=== PATIENT | female | born 1965 | race Caucasian/White ===

== ENCOUNTER → 2017-10-10 | Outpatient (CLI) | payer BC ==
--- NOTE | 2017-10-16 13:08 | MM ---
Reason for exam: screening (asymptomatic). Last mammogram was performed 1 year and 1 month ago. History: Patient had first child at age 35. Benign core biopsy of the right breast, 2000. Physical Findings: A clinical breast exam by your physician is recommended on an annual basis and results should be correlated with mammographic findings. MG Screening Mammo w CAD Bilateral CC and MLO view(s) were taken. Prior study comparison: September 13, 2016, bilateral MG screening mammo w CAD. September 07, 2015, bilateral MG screening mammo w CAD. The breast tissue is heterogeneously dense. This may lower the sensitivity of mammography. Previous mammotome biopsy in the right breast x 3. Large oval mass 10 o'clock right breast is new. Nodular asymmetry medial left breast is new. ASSESSMENT: Incomplete: need additional imaging evaluation, BI-RAD 0 RECOMMENDATION: Ultrasound of both breasts. (right lateral, left medial) [facility] will attempt to contact patient to return for ultrasound.
== END | disposition home or self-care (01) ==
LOC: RADMAMWWP 15:20
PROVIDERS: ATTEND Family Medicine
DX: Z12.31 Encounter for screening mammogram for malignant neoplasm of breast (principal)

== ENCOUNTER → 2017-10-22 | Outpatient (CLI) | payer BC ==
--- NOTE | 2017-10-22 08:34 | USB ---
Reason for exam: follow-up at short interval from prior study. History: Patient had first child at age 35. Benign core biopsy of the right breast, 2000. US Breast Workup Limited TATI Right breast ultrasound demonstrates a 0.7 x 0.6 x 0.6cm oval, cystic lesion at 10 o'clock, and a 3.0 x 1.1 x 3.0cm oval, cystic lesion at 10 o'clock. Simple cysts, with mammographic correlation. Left breast ultrasound demonstrates a 0.5 x 0.5 x 0.6cm oval, cystic lesion at 9 o'clock, with mammographic correlation. Overall fibrocystic changes. These results were verbally communicated with the patient and result sheet given to the patient on 10/22/17. ASSESSMENT: Benign, BI-RAD 2 RECOMMENDATION: Routine screening mammogram of both breasts in 1 year.
== END | disposition home or self-care (01) ==
LOC: RADUSWWP 06:54
PROVIDERS: ATTEND Family Medicine
DX: R92.8 Other abnormal and inconclusive findings on diagnostic imaging of breast (principal)

== ENCOUNTER → 2018-05-27 | Outpatient (CLI) | payer BC ==
--- NOTE | 2018-05-27 17:49 | CONS ---
CONSULTATION This is a consultation for sleep apnea. 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 She had a sleep apnea consultation back in 2012 and she decided not to undergo the treatment. Over the past 5 years, she has gained around 20- 25 pounds. Her snoring has gotten worse. She is having excessive fatigue and sleepiness during the day. She goes to bed around 10:00 p.m., wakes up at 6:30 in the morning. She wakes up tired and sleepy during the day and she is very much worried about her sleep quality. Eunice Score is at 7. She does not fall asleep at work. She does not fall asleep while driving. No sleep paralysis, hallucinations or cataplexy. PAST MEDICAL HISTORY: Depression on Prozac. SOCIAL HISTORY: Nonsmoker. No history of alcoholism. No history of IV drugs. SURGICAL HISTORY: Two C-sections and laparoscopic D and C. ALLERGIES: Are to POLLENS and CHERRIES. MEDICATION: Includes Prozac. FAMILY HISTORY: Positive for sleep apnea and her brother has obstructive sleep apnea. REVIEW OF SYSTEMS: A 12-point review of system was done and the positive findings are mentioned above in history of present illness. No reported history of grinding of the teeth. No sleepwalking, no sleep talking. No restlessness, lower extremities. No sweating. No heartburn at nighttime. No other complaints otherwise. BP is 148/73, pulse 80, respirations 16, temperature 97.5, saturation 96% on room air. Weight is 269. Height is 5 feet 7 inches. Neck size 16 inches. BMI 42.1. GENERAL APPEARANCE: Calm, comfortable. Head is atraumatic, normocephalic. Neck is short, supple. Mallampati class IV. There is no goiter or neck masses. LUNGS: Clear to auscultation. HEART: Sounds are regular rate and rhythm. Normal S1, S2. No S3. No murmurs. ABDOMEN: Soft, nontender. No organomegaly. EXTREMITIES: No edema. No cyanosis or clubbing. SKIN: Negative for any wounds or ulceration. Neurologically, the patient is OA x3. IMPRESSION: 1. Excessive daytime sleepiness, likely in a patient with obstructive sleep apnea. Will need further investigation. Eunice Score is at 7. 2. Loud snoring. 3. Obesity with a BMI of 42.1. 4. Depression. PLAN: 1. Encourage weight loss. 2. Proceed with a sleep study to look for any significant sleep breathing disorder and treat accordingly. MMODL / IJN: [id number] /
== END | disposition home or self-care (01) ==
LOC: SLEEP 16:24
PROVIDERS: ATTEND Internal Medicine Critical Care Medicine
DX: R06.83 Snoring (principal); G47.10 Hypersomnia, unspecified; R53.83 Other fatigue; F32.9 Major depressive disorder, single episode, unspecified; J30.1 Allergic rhinitis due to pollen; E66.9 Obesity, unspecified; Z91.018 Allergy to other foods; Z68.41 Body mass index [BMI] 40.0-44.9, adult; Z79.899 Other long term (current) drug therapy; Z98.890 Other specified postprocedural states
CPT/HCPCS: 99211

== ENCOUNTER → 2018-10-14 | Outpatient (CLI) | payer BC ==
--- NOTE | 2018-10-15 14:44 | MM ---
Reason for exam: screening (asymptomatic). Last mammogram was performed 1 year ago. History: Patient had first child at age 35. Benign core biopsy of the right breast, 2000. Physical Findings: A clinical breast exam by your physician is recommended on an annual basis and results should be correlated with mammographic findings. MG 3D Screening Mammo W/Cad Bilateral CC and MLO view(s) were taken. Prior study comparison: October 11, 2017, bilateral MG screening mammo w CAD. September 13, 2016, bilateral MG screening mammo w CAD. The breast tissue is heterogeneously dense. This may lower the sensitivity of mammography. There is chronic nodularity bilaterally. No significant changes when compared with prior studies. ASSESSMENT: Benign, BI-RAD 2 RECOMMENDATION: Routine screening mammogram of both breasts in 1 year.
== END | disposition home or self-care (01) ==
LOC: RADMAMWWP 12:54
PROVIDERS: ATTEND Family Medicine
DX: Z12.31 Encounter for screening mammogram for malignant neoplasm of breast (principal)
CPT/HCPCS: 77063; 77067

== ENCOUNTER → 2019-11-09 | Outpatient (CLI) | payer BC ==
--- NOTE | 2019-11-09 14:52 | MM ---
Reason for exam: screening (asymptomatic). Last mammogram was performed 1 year and 1 month ago. History: Patient had first child at age 35. Benign core biopsy of the right breast, 2000. Physical Findings: A clinical breast exam by your physician is recommended on an annual basis and results should be correlated with mammographic findings. MG 3D Screening Mammo W/Cad Bilateral CC and MLO view(s) were taken. Prior study comparison: October 14, 2018, bilateral MG 3d screening mammo w/cad. October 11, 2017, bilateral MG screening mammo w CAD. The breast tissue is heterogeneously dense. This may lower the sensitivity of mammography. Finding #1: There is a 6 mm circumscribed oval mass located 7-8 cm from the nipple in the middle, central position of the right breast on CC 19/77 and MLO 28/80. Finding #2: There are typically benign round calcifications in both breasts. Previous mammotome biopsy in the right breast x 3. ASSESSMENT: Incomplete: need additional imaging evaluation, BI-RAD 0 RECOMMENDATION: Special view mammogram and ultrasound of the right breast. [facility] will attempt to contact patient to return for supplemental views and ultrasound.
== END ==
LOC: RADMAMWWP 09:57
PROVIDERS: ATTEND Physician Assistant Medical
DX: Z12.31 Encounter for screening mammogram for malignant neoplasm of breast (principal)
CPT/HCPCS: 77063; 77067

== ENCOUNTER → 2019-11-10 | Outpatient (CLI) | payer BC | END | disposition home or self-care (01) | LOC: LABWHC1 10:55 | PROVIDERS: ATTEND Physician Assistant Medical | DX: R53.83 Other fatigue (principal) | CPT/HCPCS: 36415; 93005 ==

== ENCOUNTER → 2019-11-19 | Outpatient (CLI) | payer BC ==
--- NOTE | 2019-11-19 11:55 | MM ---
Reason for exam: additional evaluation requested from abnormal screening. Last mammogram was performed less than 1 month ago. History: Patient had first child at age 35. Benign core biopsy of the right breast, 2000. Physical Findings: Nurse did not find any significant physical abnormalities on exam. MG 3D Work Up W/Cad RT Spot compression CC, spot compression MLO, and ML view(s) were taken of the right breast. Prior study comparison: November 09, 2019, bilateral MG 3d screening mammo w/cad. October 14, 2018, bilateral MG 3d screening mammo w/cad. The breast tissue is heterogeneously dense. This may lower the sensitivity of mammography. There is a 4mm persistent low density lower outer quadrant mass 8.5cm from nipple. Ultrasound will be performed. Multiple right biopsy markers noted. These results were verbally communicated with the patient and result sheet given to the patient on 11/19/19. ASSESSMENT: Incomplete: need additional imaging evaluation, BI-RAD 0 RECOMMENDATION: Ultrasound of the right breast.
--- NOTE | 2019-11-19 11:56 | USB ---
Reason for exam: additional evaluation requested from abnormal screening. History: Patient had first child at age 35. Benign core biopsy of the right breast, 2000. US Breast Workup Limited RT Right limited breast ultrasound including focal area of concern, retroareolar and axilla demonstrates a 4 x 3 x 3mm oval, cystic lesion at 8 o'clock, correlates with mammogram, benign. These results were verbally communicated with the patient and result sheet given to the patient on 11/19/19. ASSESSMENT: Benign, BI-RAD 2 RECOMMENDATION: Return to routine screening mammogram schedule for both breasts.
== END | disposition home or self-care (01) ==
LOC: RADMAMWWP 10:14
PROVIDERS: ATTEND Family Medicine
DX: R92.8 Other abnormal and inconclusive findings on diagnostic imaging of breast (principal)
CPT/HCPCS: 77061; 77065

== ENCOUNTER → 2019-11-23 | Outpatient (CLI) | payer BC ==
--- NOTE | 2019-11-23 11:13 | US ---
EXAMINATION TYPE: US abdomen complete DATE OF EXAM: 11/23/2019 COMPARISON: US 11/28/2010 CLINICAL HISTORY: R94.5 Abnormal liver fxn test. Difficult and limited exam due to patient body habit us and overlying bowel gas EXAM MEASUREMENTS: Liver Length: 15.2 cm Gallbladder Wall: Surgically absent CBD: 0.6 cm Spleen: 11.0 cm Right Kidney: 10.9 x 5.0 x 4.2 cm Left Kidney: 11.1 x 4.8 x 4.8 cm Pancreas: Obscured by bowel gas Liver: Attenuating, echogenic, heterogeneous echotexture. Limited evaluation Gallbladder: Surgically absent Evidence for sonographic Aburto's sign: No CBD: Limited visualization, wnl as visualized Spleen: wnl Right Kidney: No hydronephrosis or masses seen Left Kidney: No hydronephrosis. Echogenic foci measuring 0.7 cm Upper IVC: Limited due to overlying bowel gas Abd Aorta: Limited due to overlying bowel gas Visualized liver is heterogeneously hyperechoic. Evaluation for focal masses is suboptimal due to the heterogeneity. Cannot exclude nonobstructing left renal calculus. Gallbladder noted surgically absen t. Suboptimal evaluation of pancreas on images saved along with aorta and IVC. IMPRESSION: Suboptimal study, more prominent heterogeneous hyperechoic appearance of liver could refl ect increasing diffuse fatty infiltration and/or product of underlying hepatocellular disease. Imagin g guided random sampling for tissue analysis can be performed if desired.
== END | disposition home or self-care (01) ==
LOC: RADUSMAIN 09:52
PROVIDERS: ATTEND Family Medicine
DX: R93.2 Abnormal findings on diagnostic imaging of liver and biliary tract (principal); R94.5 Abnormal results of liver function studies
CPT/HCPCS: 76700

== ENCOUNTER 2020-04-11 09:23 | Day surgery (SDC) | payer BC ==
[2020-04-07 15:44] VITALS: BMI 41.5
--- NOTE | 2020-04-10 11:46 | HP ---
HISTORY AND PHYSICAL CHIEF COMPLAINT: Right shoulder pain and stiffness. 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 She denies any traumatic event. She has had extensive treatment with therapy, home exercise, and injections with persistence of her stiffness. PAST MEDICAL HISTORY: Otherwise negative. PAST SURGICAL HISTORY: Significant for bilateral tubal ligation, cholecystectomy, and section. CURRENT MEDICATIONS: Prozac, Singulair, Symbicort, and Zyrtec. She denies drug allergies. FAMILY HISTORY: Seen for heart disease and hypertension. SOCIAL HISTORY: Negative for current tobacco or alcohol use. REVIEW OF SYSTEMS: Sixteen point review of systems otherwise reviewed and is noncontributory. PHYSICAL EXAMINATION: On examination, the patient is approximately 5 feet 7 inches, 260 pounds of endomorphic habitus. HEENT exam is nonfocal. Neck is supple. On examination of her right shoulder, she is tender about the anterior glenohumeral joint. She has moderate subacromial crepitus. Active range of motion forward elevation 150 degrees external rotation with arm at side 45 degrees, internal rotation to L4. Motor strength is 5/5 for abduction and external rotation. Impingement test is positive. Her distal neurovascular exam appears intact in the right upper extremity. IMPRESSION: Right shoulder adhesive capsulitis-symptomatic. RECOMMENDATIONS: I talked to the patient at length regarding her condition and treatment options. She has tried extensive conservative measures with persistence of pain and stiffness. After thorough discussion, she opts to proceed with manipulation under anesthesia. We will start her on a Medrol dose pack after the procedure as well as resumption of her exercise program. Risks and benefits were discussed at length in layman's terms. MMODL / IJN: [id number] /
[~2020-04-11 09:23] MED LIST: LACTATED RINGERS 1,000 ML IV SCH; ONDANSETRON 4 MG/2 ML VIAL IVP ONE; ceFAZolin 3 GM in SODIUM CHLORIDE 0.9% 100 ML IVPB ONE; fentaNYL (PF) 50 MCG/ML 2 ML AMP IV PRN
[2020-04-11] MEDS ORDERED: ONDANSETRON 4 MG/2 ML VIAL ONE (09:56)
[2020-04-11] MEDS ORDERED: LIDOCAINE 1% (10MG/ML) FOR IV START INTRADERMA ONE (10:00)
[2020-04-11 10:14] VITALS: TEMP 97.8
[2020-04-11 10:16] LABS: Glucose,Whole Blood 101 mg/dL (75-99)
[2020-04-11] MEDS ORDERED: PROPOFOL 10 MG/ML 20 ML VIAL IV ONE (10:21)
[2020-04-11] MEDS ORDERED: LIDOCAINE 1% INJ 10MG/ML (20 ML MDV) ONE (10:21)
--- NOTE | 2020-04-11 10:34 | P.OP ---
Date of Procedure: 04/11/20 Preoperative Diagnosis: Right shoulder adhesive capsulitis Postoperative Diagnosis: Same Procedure(s) Performed: Manipulation under anesthesia right shoulder Anesthesia: MAC Surgeon: Jay Walls Estimated Blood Loss (ml): 0 Pathology: none sent Condition: stable Disposition: PACU Indications for Procedure: The patient's a 54-year-old female who presents with persistent stiffness and pain in her right shoulder secondary to adhesive capsulitis despite conservative measures. A discussion of the risks and benefits of manipulation under anesthesia was made with patient. She opted to proceed. Risks of this procedure to include fracture, tendon rupture, possible recurrence of stiffness and need for subsequent procedures was discussed. Informed consent was obtained. Operative Findings: As below Description of Procedure: Patient was brought to the recovery room and after induction of IV sedation the right shoulder was gently manipulated. First with the arm at side is able to obtain 70 of external rotation. Moderate adhesions were encountered. I was then able to obtain full forward elevation. Again moderate adhesions were encountered. She was then monitored until fully awake. No complications were incurred. There was no blood loss.
[2020-04-11] MEDS: HYDROmorphone 0.5 MG/0.5 ML SYRINGE IVP PRN ×4 (10:35→11:02)
[2020-04-11] MEDS ORDERED: KETOROLAC 30 MG/ML 1 ML VIAL IVP ONE (10:38)
[2020-04-11 10:52] VITALS: RESP 16
[2020-04-11] MEDS ORDERED: HYDROcodone/APAP 5-325MG 1 EACH TAB ONE (11:28)
[2020-04-11] MEDS ORDERED: HYDROcodone/APAP 5-325MG 1 EACH TAB PO ONE (11:32)
[2020-04-11 11:49] VITALS: BP 142/90; PULSE 81
== END 2020-04-11 12:15 | disposition home or self-care (01) ==
LOC: OR 09:23
PROVIDERS: ATTEND Orthopaedic Surgery
DX: M75.01 Adhesive capsulitis of right shoulder (principal); J45.909 Unspecified asthma, uncomplicated; Z90.49 Acquired absence of other specified parts of digestive tract; Z98.51 Tubal ligation status; Z98.890 Other specified postprocedural states; Z79.51 Long term (current) use of inhaled steroids; Z82.49 Family history of ischemic heart disease and other diseases of the circulatory system; Z79.899 Other long term (current) drug therapy
CPT/HCPCS: 23700; 81025; J2405; J2001; J1885; J2704; J1170

== ENCOUNTER → 2020-06-15 | Outpatient (CLI) | payer BC ==
--- NOTE | 2020-06-15 10:34 | US ---
EXAMINATION TYPE: US abdomen complete DATE OF EXAM: 06/15/2020 COMPARISON: 11/23/2019 CLINICAL HISTORY: 54-year-old female R94.5 ABN RESULTS OF LIVER FUNCTIONS. TECHNIQUE: Multiple sonographic images of the abdomen are obtained. FINDINGS: EXAM MEASUREMENTS: Liver Length: 16.7 cm Gallbladder: Surgically absent CBD: 0.4 cm Spleen: 11.0 cm Right Kidney: 11.4 x 4.3 x 5.6 cm Left Kidney: 11.4 x 5.4 x 5.1 cm Pancreas: Suboptimal visualization of the pancreatic tail due to shadowing from bowel gas. Visualize d portions show no gross abnormality. Liver: Echogenic and attenuating. This secondary limits assessment for focal lesions. Gallbladder: Surgically absent CBD: wnl Spleen: wnl Right Kidney: No hydronephrosis; hyperechoic area lower pole 0.5 x 0.3 x 0.4 cm Left Kidney: No hydronephrosis; hyperechoic area mid 0.6 x 0.5 x 0.5 cm Upper IVC: Limited due to attenuation from the liver. Abd Aorta: wnl IMPRESSION: 1. Status post cholecystectomy. No biliary ductal dilatation. 2. Severe hepatic steatosis. Correlate with LFTs, lipid profile, and patient risk factors. 3. Nonobstructive bilateral nephrolithiasis measuring up to 6 mm.
== END | disposition home or self-care (01) ==
LOC: RADUSWWP 08:55
PROVIDERS: ATTEND Family Medicine
DX: K76.0 Fatty (change of) liver, not elsewhere classified (principal); N20.0 Calculus of kidney; Z90.49 Acquired absence of other specified parts of digestive tract
CPT/HCPCS: 76700

== ENCOUNTER → 2020-09-04 | Outpatient (CLI) | payer BC ==
[2020-09-04 08:09] LABS: HGB 13.7 gm/dL (11.4-16.0); MCH 30.2 pg (25.0-35.0); MCHC 33.5 g/dL (31.0-37.0); MCV 90.2 fL (80.0-100.0); Mean Platelet Volume 6.7; Platelet Count 242 k/uL (150-450); RBC 4.55 m/uL (3.80-5.40); RDW 13.3 % (11.5-15.5); WBC 5.9 k/uL (3.8-10.6)
[2020-09-04 11:16] LABS: INR 1.01 (0.90-1.11); Prothrombin Time 10.9 sec (9.9-11.9)
[2020-09-04 11:39] LABS: % Iron Saturation 14.84 (12.00-45.00); Albumin 4.1 g/dL (3.80-4.90); Albumin/Globulin Ratio 1.86 (1.60-3.17); Bilirubin, Conjugated 0.3 mg/dL (0.20-0.40); Bilirubin,Unconjugated 0.8 mg/dL; Globulin 2.2 g/dL (1.6-3.3); Total Bilirubin 1.1 mg/dL (0.3-1.2); Total Protein 6.3 g/dL (6.2-8.2)
[2020-09-04 11:46] LABS: Ferritin 85.7 ng/mL (10.0-291.0)
[2020-09-04 13:45] LABS: Hepatitis A Antibody IgM Non-Reactive (Non-Reactive); Hepatitis B Core IgM Non-Reactive (Non-Reactive); Hepatitis B Surface Antigen Non-Reactive (Non-Reactive); Hepatitis C IgG Antibody Non-Reactive (Non-Reactive)
[2020-09-05 12:05] LABS: Ceruloplasmin 24.7 mg/dL (20.0-60.0)
== END | disposition home or self-care (01) ==
LOC: LABWHC1 07:41
PROVIDERS: ATTEND Physician Assistant
DX: R74.01 Elevation of levels of liver transaminase levels (principal)
CPT/HCPCS: 36415; 80074; 80076; 82103; 82390; 82728; 83516; 83540; 83550; 85027; 85610; 86038

== ENCOUNTER → 2021-02-15 | Outpatient (CLI) | payer BC ==
--- NOTE | 2021-02-16 09:39 | MM ---
Reason for exam: screening (asymptomatic). Last mammogram was performed 1 year and 3 months ago. History: Patient is postmenopausal and had first child at age 35. Benign core biopsy of the right breast, 2000. Taking estrogen for 4 months. Physical Findings: A clinical breast exam by your physician is recommended on an annual basis and results should be correlated with mammographic findings. MG 3D Screening Mammo W/Cad Bilateral CC and MLO view(s) were taken. Prior study comparison: November 19, 2019, right breast MG 3d work up w/cad RT. November 09, 2019, bilateral MG 3d screening mammo w/cad. The breast tissue is heterogeneously dense. This may lower the sensitivity of mammography. Benign appearing bilateral calcifications. Previous mammotome biopsy in the right breast. ASSESSMENT: Incomplete: need additional imaging evaluation, BI-RAD 0 RECOMMENDATION: Special view mammogram of the left breast. If lesion persists on supplemental views, image directed ultrasound is recommended. [facility] will attempt to contact patient to return for supplemental views and ultrasound if indicated.
== END | disposition home or self-care (01) ==
LOC: RADMAMWWP 11:18
PROVIDERS: ATTEND Family Medicine
DX: Z12.31 Encounter for screening mammogram for malignant neoplasm of breast (principal); Z78.0 Asymptomatic menopausal state
CPT/HCPCS: 77063; 77067

== ENCOUNTER → 2021-02-20 | Outpatient (CLI) | payer BC ==
--- NOTE | 2021-02-20 10:48 | MM ---
Reason for exam: additional evaluation requested from abnormal screening. Last mammogram was performed less than 1 month ago. History: Patient is postmenopausal and had first child at age 35. Benign core biopsy of the right breast, 2000. Taking estrogen for 4 months. Physical Findings: Nurse did not find any significant physical abnormalities on exam. MG 3D Work Up W/Cad LT Spot compression CC and LM view(s) were taken of the left breast. Prior study comparison: February 15, 2021, bilateral MG 3d screening mammo w/cad. November 19, 2019, right breast MG 3d work up w/cad RT. The breast tissue is heterogeneously dense. This may lower the sensitivity of mammography. There is no discrete abnormality including area of concern. These results were verbally communicated with the patient and result sheet given to the patient on 02/20/21. ASSESSMENT: Probably benign, BI-RAD 3 RECOMMENDATION: Follow-up diagnostic mammogram of the left breast in 6 months.
== END | disposition home or self-care (01) ==
LOC: RADMAMWWP 09:01
PROVIDERS: ATTEND Family Medicine
DX: R92.2 Inconclusive mammogram (principal); Z78.0 Asymptomatic menopausal state
CPT/HCPCS: 77061; 77065

== ENCOUNTER → 2021-08-24 | Outpatient (CLI) | payer BC ==
--- NOTE | 2021-08-27 09:11 | MM ---
Reason for exam: follow-up at short interval from prior study. Last mammogram was performed 6 months ago. History: Patient is postmenopausal and had first child at age 35. Benign core biopsy of the right breast, 2000. Taking estrogen for 4 months. Physical Findings: Nurse did not find any significant physical abnormalities on exam. MG 3D Diag Mammo W/Cad LT CC and MLO view(s) were taken of the left breast. Prior study comparison: February 20, 2021, left breast MG 3d work up w/cad LT. February 15, 2021, bilateral MG 3d screening mammo w/cad. The breast tissue is heterogeneously dense. This may lower the sensitivity of mammography. There is no discrete abnormality. No significant new findings when compared with previous films. These results were verbally communicated with the patient and result sheet given to the patient on 08/24/21. ASSESSMENT: Probably benign, BI-RAD 3 RECOMMENDATION: Follow-up diagnostic mammogram of both breasts in 6 months.
== END | disposition home or self-care (01) ==
LOC: RADMAMWWP 15:01
PROVIDERS: ATTEND Family Medicine
DX: R92.8 Other abnormal and inconclusive findings on diagnostic imaging of breast (principal)
CPT/HCPCS: 77061; 77065

== ENCOUNTER → 2022-02-22 | Outpatient (CLI) | payer BC ==
--- NOTE | 2022-02-22 13:45 | MM ---
Reason for exam: additional evaluation requested from prior study. Last mammogram was performed 6 months ago. History: Patient is postmenopausal and had first child at age 35. Benign core biopsy of the right breast, 2000. Taking estrogen beginning at age 54. Physical Findings: A clinical breast exam by your physician is recommended on an annual basis and results should be correlated with mammographic findings. MG 3D Diag Mammo W/Cad TATI Bilateral CC and MLO view(s) were taken. Prior study comparison: August 24, 2021, left breast MG 3d diag mammo w/cad LT. February 20, 2021, left breast MG 3d work up w/cad LT. The breast tissue is heterogeneously dense. This may lower the sensitivity of mammography. Stable benign calcifications. There is no discrete abnormality. No significant new findings when compared with previous films. Results were given to the patient verbally at the time of the exam. ASSESSMENT: Benign, BI-RAD 2 RECOMMENDATION: Routine screening mammogram of both breasts in 1 year.
== END | disposition home or self-care (01) ==
LOC: RADMAMWWP 12:51
PROVIDERS: ATTEND Family Medicine
DX: R92.8 Other abnormal and inconclusive findings on diagnostic imaging of breast (principal)
CPT/HCPCS: 77062; 77066

== ENCOUNTER → 2022-03-15 | Outpatient (CLI) | payer BC ==
--- NOTE | 2022-03-16 01:22 | MR ---
EXAMINATION TYPE: MR knee LT wo con DATE OF EXAM: 03/15/2022 COMPARISON: None HISTORY: Left knee pain x 8 weeks, no trauma. Multiplanar multiecho imaging of the left knee without contrast. There is knee joint effusion. There is subcutaneous edema around the knee. There is edema anterior to the patella. The anterior and posterior cruciate ligaments are intact. Collateral ligaments are inta ct. There is horizontal tear of the posterior horn medial meniscus extending to the inferior surface. Anterior horn appears intact. There is tear along the inferior surface of the posterior horn of the lateral meniscus at the posteri or aspect. No evidence of a fracture. No evidence of focal bone destruction. There is minimal edema in the subch ondral superior patella. IMPRESSION: Small tears of the posterior horn of the medial and lateral meniscus as above. Moderate knee joint ef fusion. No evidence of ligamentous tear. No fracture. Subcutaneous edema around the knee joint. Minim al bone bruise in the superior subchondral patella.
== END | disposition home or self-care (01) ==
LOC: RADMRIMAIN 19:57
PROVIDERS: ATTEND Orthopaedic Surgery
DX: S83.242A Other tear of medial meniscus, current injury, left knee, initial encounter (principal); M25.462 Effusion, left knee; X58.XXXA Exposure to other specified factors, initial encounter

== ENCOUNTER 2023-01-21 11:18 | Day surgery (SDC) | payer BC ==
[~2023-01-21 11:18] MED LIST changes: +LIDOCAINE 1% (10MG/ML) FOR IV START INTRADERMA PRN; -ONDANSETRON 4 MG/2 ML VIAL IVP ONE; -ceFAZolin 3 GM in SODIUM CHLORIDE 0.9% 100 ML IVPB ONE; -fentaNYL (PF) 50 MCG/ML 2 ML AMP IV PRN
[2023-01-21 11:56] VITALS: RESP 16; TEMP 97
[2023-01-21] MEDS ORDERED: LIDOCAINE 2% INJ 20 MG/ML (2 ML VIAL) ONE (12:17)
[2023-01-21] MEDS ORDERED: PROPOFOL 10 MG/ML 20 ML VIAL IV ONE (12:17)
--- NOTE | 2023-01-21 12:18 | P.GSHP ---
History of Present Illness H&P Date: 01/21/23 Chief Complaint: GERD, screening 57-year-old female here for upper and lower endoscopy. Patient was recently seen in the bariatric center. Mild reflux. Last colonoscopy 2016 was normal. No family history of colon cancer. No bowel complaints. Past Medical History Past Medical History: Asthma, Musculoskeletal Disorder, Osteoarthritis (OA), Sleep Apnea/CPAP/BIPAP Additional Past Medical History / Comment(s): severe SINUS/ALLERGIES, hx. elevated liver enzymes doesnt tolerate tylenol. frozen right shoulder, past hx. of left frozen shoulder, arthritis in hands. uses cpap. recent fractured lt arm and hand sprain in a brace. preparing for bariatric surgery with scopes History of Any Multi-Drug Resistant Organisms: None Reported Past Surgical History: Section, Cholecystectomy Additional Past Surgical History / Comment(s): [employer] LAPAROSCOPY, wisdom teeth, manipulation of shoulder. Past Anesthesia/Blood Transfusion Reactions: No Reported Reaction Smoking Status: Former smoker - Past Family History Mother Family Medical History: Hypertension, Osteoarthritis (OA), Thyroid Disorder Additional Family Medical History / Comment(s): depresstion Father Family Medical History: Coronary Artery Disease (CAD), CVA/TIA Additional Family Medical History / Comment(s): by pass surgery Medications and Allergies Home Medications Medication Instructions Recorded Confirmed Type Fluticasone Nasal Jachin [Flonase 1 spray NASAL DAILY 10/17/15 01/21/23 History Nasal Jachin] Budesonide/Formoterol Fumarate 2 puff INHALATION BID 04/07/20 01/21/23 History [Symbicort 160-4.5 Mcg Inhaler] Cholecalciferol [Vitamin D3 (25 4,000 unit PO MOTUWETHFR 04/07/20 01/20/23 History Mcg = 1000 Iu)] Montelukast Sodium [Singulair] 10 mg PO HS 04/07/20 01/20/23 History Albuterol Inhaler [Ventolin Hfa 1 - 2 puff INHALATION Q6H PRN 01/20/23 01/21/23 History Inhaler] EPINEPHrine [Auvi-Q] 0.3 mg IM ONCE PRN 01/20/23 01/20/23 History Fexofenadine HCl [Trinity Allergy] 180 mg PO DAILY 01/20/23 01/20/23 History Naproxen Sodium [Aleve] 220 mg PO DIRECTED PRN 01/20/23 01/20/23 History Unk Albuterol Neb 1 inhalation INHALATION 01/20/23 01/20/23 History DIRECTED PRN Allergies Allergy/AdvReac Type Severity Reaction Status Date / Time cherries Allergy Severe Anaphylaxis Uncoded 01/21/23 11:47 Surgical - Exam Vital Signs Temp Pulse Resp BP Pulse Ox 97.0 F L 91 16 165/81 98 01/21/23 11:55 01/21/23 11:55 01/21/23 11:55 01/21/23 11:55 01/21/23 11:55 Physical exam: General: Well-developed, well-nourished HEENT: Normocephalic, sclerae nonicteric Abdomen: Nontender, nondistended Extremities: No edema Neuro: Alert and oriented Assessment and Plan (1) GERD (gastroesophageal reflux disease) Narrative/Plan: Will proceed with upper and lower endoscopy Current Visit: Yes Status: Acute Code(s): K21.9 - GASTRO-ESOPHAGEAL REFLUX DISEASE WITHOUT ESOPHAGITIS SNOMED Code(s): 800855071
--- NOTE | 2023-01-21 12:40 | P.PCN ---
Date of Procedure: 01/21/23 Procedure(s) Performed: PREOPERATIVE DIAGNOSIS: GERD, presurgical, screening POSTOPERATIVE DIAGNOSIS: Mild gastritis, normal colon PROCEDURE: 1. EGD with biopsy 2. Colonoscopy ANESTHESIA: MAC SURGEON: Alban Mcdaniel M.D. SPECIMENS: Antrum ENDOSCOPIC PROCEDURE: The patient was on the endoscopy table in the left decubitus position. The Olympus gastroscope was inserted into the oropharynx and passed under direct visualization to the region of the third portion of the duodenum. From that point the scope was slowly withdrawn inspecting all surfaces carefully. There were no neoplastic inflammatory or polypoid lesions throughout the duodenum. The pylorus was widely patent. The stomach was carefully inspected. There was mild gastritis present. A biopsy of the antrum took place to rule out H. pylori. Retroflexion revealed a normal hiatus. The esophagus was then carefully examined. There were no neoplastic inflammatory or polypoid lesions throughout the visualized esophagus. The patient was kept on the endoscopy table in the left decubitus position. The Olympus colonoscope was inserted into the anus and passed under direct visualization to the base of the cecum. The appendiceal orifice was visualized. From that point the scope was slowly withdrawn inspecting all surfaces care fully. There were no neoplastic inflammatory or polypoid lesions throughout the cecum, ascending, transverse, descending, sigmoid and rectum. There was no visible diverticulosis noted. Digital rectal examination was normal. The patient was taken to the recovery room in stable condition per anesthesia guidelines. RECOMMENDATIONS: Resume diet. Await biopsy results. Follow-up bariatric center. Repeat colonoscopy 10 years
[2023-01-21 13:07] VITALS: BP 146/90; PULSE 65
== END 2023-01-21 13:28 | disposition home or self-care (01) ==
LOC: ORWHC2ENDO 11:18
PROVIDERS: ATTEND Surgery
DX: Z12.11 Encounter for screening for malignant neoplasm of colon (principal); K29.50 Unspecified chronic gastritis without bleeding; K21.9 Gastro-esophageal reflux disease without esophagitis; J45.909 Unspecified asthma, uncomplicated; M19.90 Unspecified osteoarthritis, unspecified site; G47.30 Sleep apnea, unspecified; Z98.891 History of uterine scar from previous surgery; Z90.49 Acquired absence of other specified parts of digestive tract; Z98.890 Other specified postprocedural states; Z82.49 Family history of ischemic heart disease and other diseases of the circulatory system; Z83.49 Family history of other endocrine, nutritional and metabolic diseases; Z82.61 Family history of arthritis; Z82.3 Family history of stroke; Z87.891 Personal history of nicotine dependence; Z79.51 Long term (current) use of inhaled steroids; Z79.899 Other long term (current) drug therapy
CPT/HCPCS: 45378; 88305; 43239; J2704; J2001

== ENCOUNTER → 2023-02-11 | Outpatient (CLI) | payer BC ==
[2023-02-11 14:03] VITALS: BP 134/80; PULSE 83; RESP 16; TEMP 98; BMI 42.3
--- NOTE | 2023-02-11 16:28 | P.BASOAP ---
Subjective Progress Note Date: 02/11/23 Principal diagnosis: Morbid obesity 57-year-old female returns for recheck. Underwent a recent EGD showing mild gastritis. No hiatal hernia seen. No other changes to her previous bariatric history and physical. BMI today 42. Objective - Vital Signs Vital signs: Vital Signs Temp 98 F 02/11/23 14:00 Pulse 83 02/11/23 14:00 Resp 16 02/11/23 14:00 BP 134/80 02/11/23 14:00 Pulse Ox FiO2 Intake & Output 02/10/23 02/11/23 02/11/23 18:59 06:59 18:59 Weight 122.47 kg - Exam Abdomen: Soft, nontender, nondistended Assessment/Plan (1) Morbid obesity with BMI of 40.0-44.9, adult Narrative/Plan: 57-year-old female with history of morbid obesity. Patient remains interested in sleeve gastrectomy. She is attending the dietary class on Friday. We reviewed the surgical consent form in detail today. All questions answered. Will tentatively plan sleeve gastrectomy after April 18. Plan: Date: 02/11/23 Initial Weight: 127.006 kg Initial BMI: 43.8 Current Weight: 122.47 kg Current BMI: 42.3 Type of Surgery: Total Volume in Band: Previous Volume: Volume Removed: Volume Added: Band Size:
== END ==
LOC: BARWHC3 13:26
PROVIDERS: ATTEND Surgery
DX: E66.01 Morbid (severe) obesity due to excess calories (principal); Z98.84 Bariatric surgery status; Z68.41 Body mass index [BMI] 40.0-44.9, adult; Z91.018 Allergy to other foods; Z87.891 Personal history of nicotine dependence
CPT/HCPCS: 99211

== ENCOUNTER → 2023-02-17 | Outpatient (CLI) | payer BC ==
[2023-02-17 11:20] VITALS: BMI 42.9
== END ==
LOC: BARWHC3 08:38
PROVIDERS: ATTEND Surgery
DX: E66.01 Morbid (severe) obesity due to excess calories (principal); Z71.3 Dietary counseling and surveillance; Z68.41 Body mass index [BMI] 40.0-44.9, adult; Z91.018 Allergy to other foods; Z87.891 Personal history of nicotine dependence
CPT/HCPCS: 97804

== ENCOUNTER → 2023-05-01 | Outpatient (CLI) | payer BC ==
[2023-05-01 15:31] LABS: HCT 44.8 % (37.2-46.3); HGB 14.8 d/dL (12.0-15.0); MCH 29.4 pg (27.0-32.0); MCV 88.9 FL (80.0-97.0); Mean Platelet Volume 9.3 FL (9.5-12.2); NRBC Per 100 WBC 0 X 10*3/uL (0.00-0.01); Platelet Count 235 X 10*3/uL (140-440); RBC 5.04 X 10*6/uL (4.10-5.20); RDW 13.5 % (11.5-14.5); WBC 4.87 X 10*3/uL (4.50-10.00)
[2023-05-01 15:56] LABS: ALT 38 U/L (8-44); AST 36 U/L (13-35); Albumin 4.7 d/dL (3.8-4.9); Albumin/Globulin Ratio 1.81 Ratio (1.60-3.17); Alkaline Phosphatase 77 U/L (41-126); BUN/Creat Ratio 23.11 Ratio (12.00-20.00); Blood Urea Nitrogen 20.8 mg/dL (9.0-27.0); Calcium 9.8 mg/dL (8.7-10.3); Carbon Dioxide 25.9 mmol/L (21.6-31.8); Chloride 100 mmol/L (96-109); Globulin 2.6 d/dL (1.6-3.3); Glucose 89 mg/dL (70-110); Potassium 4.7 mmol/L (3.5-5.5); Sodium 138 mmol/L (135-145); Total Bilirubin 1.8 mg/dL (0.3-1.2); Total Protein 7.3 d/dL (6.2-8.2)
== END | disposition home or self-care (01) ==
LOC: LABWHC1 10:04
PROVIDERS: ATTEND Surgery
DX: Z01.812 Encounter for preprocedural laboratory examination (principal)
CPT/HCPCS: 80053; 85027

== ENCOUNTER 2023-05-12 06:09 | Observation (INO) | payer BC ==
[~2023-05-12 06:09] MED LIST changes: +ACETAMINOPHEN TAB 500 MG TAB PO PRN; +ENOXAPARIN 40 MG/0.4 ML SYRINGE SQ PRN; -LACTATED RINGERS 1,000 ML IV SCH; -LIDOCAINE 1% (10MG/ML) FOR IV START INTRADERMA PRN; +ONDANSETRON 4 MG/2 ML VIAL IVP PRN
[2023-05-12] MEDS ORDERED: DEXAMETHASONE SOD PHOSPHATE 4 MG/ML 1 ML VIAL IV ONE (06:12)
[2023-05-12] MEDS ORDERED: ONDANSETRON 4 MG/2 ML VIAL IVP ONE (06:12)
[2023-05-12] MEDS: LACTATED RINGERS 1,000 ML IV SCH (06:44)
--- NOTE | 2023-05-12 07:28 | P.GSHP ---
History of Present Illness H&P Date: 05/12/23 Chief Complaint: Morbid obesity 57-year-old female here today for sleeve gastrectomy. Patient with history of osteoarthritis plantar fasciitis and sleep apnea. Recent EGD showed mild gastritis. No active tobacco use. No history of DVT or dysphagia. BMI today 39.6. Past Medical History Past Medical History: Asthma, Musculoskeletal Disorder, Osteoarthritis (OA), Sleep Apnea/CPAP/BIPAP Additional Past Medical History / Comment(s): severe SINUS/ALLERGIES, hx. elevated liver enzymes doesnt tolerate tylenol. frozen right shoulder, past hx. of left frozen shoulder, arthritis in hands. uses cpap. preparing for bariatric surgery with scopes, FX BILAT ARMS-BOTH HEALED History of Any Multi-Drug Resistant Organisms: None Reported Past Surgical History: Section, Cholecystectomy Additional Past Surgical History / Comment(s): D & C. 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 COLONOSCOPY/EGD Past Anesthesia/Blood Transfusion Reactions: No Reported Reaction Smoking Status: Former smoker - Past Family History Mother Family Medical History: Hypertension, Osteoarthritis (OA), Thyroid Disorder Additional Family Medical History / Comment(s): depresstion Father Family Medical History: Coronary Artery Disease (CAD), CVA/TIA Additional Family Medical History / Comment(s): by pass surgery Medications and Allergies Home Medications Medication Instructions Recorded Confirmed Type Fluticasone Nasal [place] [Flonase 1 spray NASAL DAILY PRN 10/17/15 05/12/23 History Nasal [place]] Budesonide/Formoterol Fumarate 2 puff INHALATION BID PRN 04/07/20 05/06/23 History [Symbicort 160-4.5 Mcg Inhaler] Cholecalciferol [Vitamin D3 (25 4,000 unit PO MOTUWETHFR 04/07/20 05/12/23 History Mcg = 1000 Iu)] Montelukast Sodium [Singulair] 10 mg PO HS 04/07/20 05/06/23 History Albuterol Inhaler [Ventolin Hfa 1 - 2 puff INHALATION Q6H PRN 01/20/23 05/06/23 History Inhaler] EPINEPHrine [Auvi-Q] 0.3 mg IM ONCE PRN 01/20/23 05/06/23 History Fexofenadine HCl [Trinity Allergy] 180 mg PO DAILY 01/20/23 05/12/23 History Allergies Allergy/AdvReac Type Severity Reaction Status Date / Time cherries Allergy Severe Anaphylaxis Uncoded 05/12/23 06:45 Surgical - Exam Vital Signs Temp Pulse Resp BP Pulse Ox 98.3 F 67 16 140/67 94 L 05/12/23 06:50 05/12/23 06:50 05/12/23 06:50 05/12/23 06:50 05/12/23 06:50 Physical exam: General: Well-developed, well-nourished HEENT: Normocephalic, sclerae nonicteric Abdomen: Nontender, nondistended Extremities: No edema Neuro: Alert and oriented Assessment and Plan (1) Morbid obesity with BMI of 40.0-44.9, adult Narrative/Plan: 57-year-old female with morbid obesity and associated comorbidities. We'll proceed with laparoscopic robotic-assisted sleeve gastrectomy, possible open. The risks of bleeding, infection, stenosis, stricture, leak, abscess, fistula formation, peritonitis, poor weight loss, reflux, vomiting, conversion to an open procedure, aborting sleeve gastrectomy, MD, PE, DVT, and were discussed. The patient understands and wishes to proceed. Current Visit: No Status: Acute Code(s): E66.01 - MORBID (SEVERE) OBESITY DUE TO EXCESS CALORIES; Z68.41 - BODY MASS INDEX [BMI] 40.0-44.9, ADULT SNOMED Code(s): 195364422
[2023-05-12] MEDS ORDERED: MIDAZOLAM 2 MG/2 ML VIAL ONE (07:54)
[2023-05-12] MEDS ORDERED: SUCCINYLCHOLINE CHLORIDE 200 MG/10 ML VIAL IV ONE (07:54)
[2023-05-12] MEDS ORDERED: ROCURONIUM 10 MG/ML (5 ML VIAL) IV ONE (07:54)
[2023-05-12] MEDS ORDERED: LIDOCAINE 4% LTA KIT (4 ML) TOPICAL ONE (07:54)
[2023-05-12] MEDS ORDERED: LIDOCAINE 2% INJ 20 MG/ML (2 ML VIAL) ONE (07:54)
[2023-05-12] MEDS ORDERED: NEOSTIGMINE 1 MG/ML 10 ML VIAL ONE (07:54)
[2023-05-12] MEDS ORDERED: fentaNYL (PF) 50 MCG/ML 2 ML AMP ONE (07:54)
[2023-05-12] MEDS ORDERED: PROPOFOL 10 MG/ML 20 ML VIAL IV ONE (07:54)
[2023-05-12] MEDS ORDERED: GLYCOPYRROLATE 0.2 MG/ML 2 ML VIAL ONE (07:54)
[2023-05-12] MEDS ORDERED: BUPIVACAINE (PF) 0.25% 30 ML VIAL SQ ONE ×2 (07:57→08:20)
[2023-05-12] MEDS ORDERED: LACTATED RINGERS 1,000 ML IV ONE (09:38)
[2023-05-12] MEDS ORDERED: SIMETHICONE 80 MG CHEWABLE PO PRN (10:19)
[2023-05-12] MEDS ORDERED: NALOXONE 0.4 MG/ML 1 ML VIAL IV PRN (10:19)
[2023-05-12] MEDS ORDERED: HYOSCYAMINE ORAL DROPS 1.875 MG/15 ML BOTTLE PO PRN (10:19)
[2023-05-12] MEDS ORDERED: HYDROmorphone 0.5 MG/0.5 ML SYRINGE IVP PRN (10:19)
[2023-05-12] MEDS ORDERED: ONDANSETRON 4 MG/2 ML VIAL IVP PRN (10:19)
[2023-05-12] MEDS ORDERED: diphenhydrAMINE 50 MG/ML 1 ML VIAL IVP PRN (10:19)
--- NOTE | 2023-05-12 10:26 | P.OP ---
Date of Procedure: 05/12/23 Procedure(s) Performed: PREOPERATIVE DIAGNOSIS: Morbid obesity, arthritis, sleep apnea POSTOPERATIVE DIAGNOSIS: Same PROCEDURE: Da Serenity assisted laparoscopic sleeve gastrectomy SURGEON: Violeta EBL: Minimal ANESTHESIA: General COMPLICATIONS: None OPERATIVE PROCEDURE: Patient was placed in the operating table in the supine position. The patient was then placed under general anesthesia at that time. The abdomen was prepped and draped in the usual sterile fashion. A 5 mm optical trocar was placed in the left upper quadrant 20 cm inferior to the xiphoid process. Insufflation took place up to 15 mmHg. No adhesions were seen. A 5 mm subxiphoid incision was made and the medium Eliseo retractor was used to elevate the left lobe of liver anteriorly. This was held in place using the fixed arm retractor. An additional 12 mm trocar was placed in the right paramedian location and 2 additional 8 mm trochars were placed in the left upper quadrant one medial and one lateral to the initially placed optical trocar. All of these trochars were placed along the same plane. The initial 5 was then sw itched to an 8 mm trocar. The robot was then docked appropriately. The 8 mm camera was placed in the left paramedian trocar site down viewing. A fenestrated bipolar was placed in arm 1, arm 3 had the vessel sealer, arm 4 had the small grasper retractor. The hiatus was inspected and there was no visible hiatal hernia. At that point I moved to the distal aspect of the greater curvature the stomach. The short gastric vasculature were divided using the vessel sealer. This dissection took place distally until we were 4 cm from the pylorus. The posterior adhesions were divided as well. The dissection then took place proximally along the stomach until the posterior short gastrics were divided and the fundus of the stomach was fully mobilized. Once the stomach was fully mobilized the blunt tipped 40-Faroese bougie dilator was advanced into the stomach and advanced all the way to the prepyloric location. The patient's stomach by palpation seemed to be of average thickness. Ethicon SLR buttress material was used at each staple load. A total of 7 staple loads were utilized. The first was black in color, the second tumor green, the remaining 4 were blue in color. The stomach was then placed in the right upper quadrant after it was fully excised. The oral gastric tube was reinserted. The stomach was insufflated with approximately 100 mL of methylene blue. No evidence of leak or obstruction was seen. Pressure was then dropped to 8 mm for 2-3 minutes. The staple line was inspected and the patient was noted to have several sites of bleeding along the staple line. This was somewhat more then would normally be expected. 12 mm clips were utilized at each oozing site with no further bleeding seen. Pressure was brought back up to 15. Tisseel fibrin glue was then used along the length of the staple line. The robot was then undocked. The da Serenity laparoscope was used and the stomach was removed from the 12 mm trocar site without difficulty. The fascia at the 12mm site was closed using [id number] 0 Vicryl sutures with the laparoscopic suture passer and Raimundo Juan technique. The insufflation was evacuated. The skin at all 5 incisions were closed using 4-0 Monocryl sutures. Skin glue was then applied. DISPOSITION: Stable to recovery room
[2023-05-12] MEDS: HYDROmorphone 0.5 MG/0.5 ML SYRINGE IVP PRN ×2 (10:31→10:40)
[2023-05-12] MEDS: HYDROmorphone 1 MG/ML 1 ML SYRINGE IVP PRN ×2 (11:41→15:34)
[2023-05-12] MEDS: ALBUTEROL NEBULIZED 2.5 MG/3 ML INHALATION SCH ×3 (12:07→20:39)
[2023-05-12] MEDS: 0.9% NACL WITH KCL 20 MEQ/L 1,000 ML IV SCH ×2 (12:48→22:37)
[2023-05-12] MEDS: ACETAMINOPHEN IV (For NPO) 1,000 MG in EMPTY BAG 1 BAG IVPB SCH ×2 (12:48→17:15)
[2023-05-12] MEDS ORDERED: SYMBICORT 160-4.5 MCG INHALER INHALATION PRN (15:35)
[2023-05-12] MEDS ORDERED: FLUTICASONE 50MCG/SPRAY NASAL 16GM NASAL PRN (15:35)
[2023-05-12] MEDS ORDERED: ALBUTEROL NEBULIZED 2.5 MG/3 ML INHALATION PRN (15:36)
--- NOTE | 2023-05-12 15:37 | P.CONS ---
History of Present Illness - Reason for Consult Consult date: 05/12/23 TORSTEN Requesting physician: Alban Mcdaniel - History of Present Illness Patient is a 57-year-old female with class II obesity, asthma, elevated liver enzymes, and arthritis who presented for elective sleeve gastrectomy. Patient seen and examined at bedside. She does complain of some sensation of fullness or gas within her upper abdomen. She denies any shortness of breath, nausea, vomiting, lightheadedness, dizziness. She almost feels as if she could belch but is unable to. She is worried about her CPAP tonight dizziness worse. I discussed with her that she could does not use her CPAP tonight by keep the head of the bed greater than 30 and continue her oxygen overnight. She denies any recent cough, cold, fever, flu, nausea, vomiting. Vital signs reviewed General: nontoxic, no distress, appears at stated age Derm: warm, dry Eyes: EOMI, no lid lag, anicteric sclera, pupils equal round reactive to light ENT: Nose and ears atraumatic, no thrush, no pharyngeal erythema Cardiovascular: S1S2 reg, no murmur, positive posterior tibial pulse bilateral, no edema,Lungs: clear to auscultation bilateral, no rhonchi, no rales, no wheeze, no accessory muscle use Abdominal: soft, nontender to palpation, no guarding, no appreciable organomegaly, normal bowel sounds Ext: no gross muscle atrophy, moving all 4 extremities independently, no contractures Neuro: CN II-XII grossly intact, no focal neuro deficit Psych: Alert, oriented, appropriate affect Assessment/plan: 57-year-old female status post sleeve gastrectomy for obesity with BMI 39.6 Intractable postop pain -Continue with acetaminophen thousand milligrams every 6 hours scheduled IV, Dilaudid for breakthrough pain. Patient will get it dose now. TORSTEN -We will hold CPAP use tonight -Head of the bed elevated greater than 30, continue with O2 supplementation, spot check Asthma Allergic rhinitis - Symbicort 2 puffs twice daily, albuterol via nebulizer every 6 hours scheduled and as needed - Flonase 1 spray's nostril daily - hold ana m Imaging: None Data Review: Preoperative blood work reviewed. Preoperative hemoglobin 14.8, creatinine 0.9, A1c 5.7 in November Thank you for allowing us to participate in the care of this pleasant patient. Do not hesitate to contact us with questions. Someone can be reached from the [facility] hospitalist group all hours of the day at [phone] or via [employer] serve. This dictation was prepared using [email or web address] voice recognition software. Though every attempt is made to correct errors during dictation some may still exist. Past Medical History Past Medical History: Asthma, Musculoskeletal Disorder, Osteoarthritis (OA), Sleep Apnea/CPAP/BIPAP Additional Past Medical History / Comment(s): severe SINUS/ALLERGIES, hx. elevated liver enzymes doesnt tolerate tylenol. frozen right shoulder, past hx. of left frozen shoulder, arthritis in hands. uses cpap. preparing for bariatric surgery with scopes, FX BILAT ARMS-BOTH HEALED History of Any Multi-Drug Resistant Organisms: None Reported Past Surgical History: Section, Cholecystectomy Additional Past Surgical History / Comment(s): D & C. BACK HANGER LAPAROSCOPY, wisdom teeth, manipulation of shoulder. COLONOSCOPY/EGD Past Anesthesia/Blood Transfusion Reactions: No Reported Reaction Past Psychological History: No Psychological Hx Reported Smoking Status: Former smoker Past Alcohol Use History: Occasional Additional Past Alcohol Use History / Comment(s): SMOKED, QUIT 1999 FOR 15 YRS. Past Drug Use History: None Reported - Past Family History Mother Family Medical History: Hypertension, Osteoarthritis (OA), Thyroid Disorder Additional Family Medical History / Comment(s): depresstion Father Family Medical History: Coronary Artery Disease (CAD), CVA/TIA Additional Family Medical History / Comment(s): by pass surgery Medications and Allergies Home Medications Medication Instructions Recorded Confirmed Type Fluticasone Nasal [place] [Flonase 1 spray NASAL DAILY PRN 10/17/15 05/12/23 History Nasal [place]] Budesonide/Formoterol Fumarate 2 puff INHALATION BID PRN 04/07/20 05/06/23 History [Symbicort 160-4.5 Mcg Inhaler] Cholecalciferol [Vitamin D3 (25 4,000 unit PO MOTUWETHFR 04/07/20 05/12/23 History Mcg = 1000 Iu)] Montelukast Sodium [Singulair] 10 mg PO HS 04/07/20 05/06/23 History Albuterol Inhaler [Ventolin Hfa 1 - 2 puff INHALATION Q6H PRN 01/20/23 05/06/23 History Inhaler] EPINEPHrine [Auvi-Q] 0.3 mg IM ONCE PRN 01/20/23 05/06/23 History Fexofenadine HCl [Ana M Allergy] 180 mg PO DAILY 01/20/23 05/12/23 History Allergies Allergy/AdvReac Type Severity Reaction Status Date / Time cherries Allergy Severe Anaphylaxis Uncoded 05/12/23 06:45 Physical Exam Osteopathic Statement: *. No significant issues noted on an osteopathic structural exam other than those noted in the History and Physical/Consult. Vitals: Vital Signs Temp Pulse Pulse Pulse Resp BP BP 05/12/23 13:15 57 L 138/75 05/12/23 13:00 64 151/79 05/12/23 12:30 77 147/83 05/12/23 12:22 74 05/12/23 12:15 72 131/74 05/12/23 12:11 05/12/23 12:08 73 05/12/23 12:00 76 139/68 05/12/23 11:45 69 131/78 05/12/23 11:30 69 147/79 05/12/23 11:20 98.2 F 69 14 146/82 05/12/23 11:15 98.0 F 62 146/82 05/12/23 10:57 69 16 140/63 05/12/23 10:42 74 16 139/63 05/12/23 10:27 69 16 147/59 05/12/23 10:12 96.9 F L 81 16 156/71 05/12/23 06:50 98.3 F 67 16 140/67 Pulse Ox 05/12/23 13:15 96 05/12/23 13:00 92 L 05/12/23 12:30 95 05/12/23 12:22 05/12/23 12:15 99 05/12/23 12:11 98 05/12/23 12:08 05/12/23 12:00 94 L 05/12/23 11:45 91 L 05/12/23 11:30 92 L 05/12/23 11:20 94 L 05/12/23 11:15 94 L 05/12/23 10:57 96 05/12/23 10:42 97 05/12/23 10:27 96 05/12/23 10:12 98 05/12/23 06:50 94 L Intake and Output 05/12/23 05/12/23 05/12/23 06:59 14:59 22:59 Intake Total 300 1200 Output Total 25 Balance 300 1175 Intake: IV 300 1200 Output: Estimated Blood Loss 25 Other: Weight 114.7 kg 114.7 kg
[2023-05-13] MEDS: ACETAMINOPHEN IV (For NPO) 1,000 MG in EMPTY BAG 1 BAG IVPB SCH ×3 (00:17→12:45)
[2023-05-13] MEDS: 0.9% NACL WITH KCL 20 MEQ/L 1,000 ML IV SCH ×4 (02:16→17:38)
[2023-05-13] MEDS: ENOXAPARIN 40 MG/0.4 ML SYRINGE SQ SCH (06:26)
[2023-05-13] MEDS: LACTATED RINGERS 1,000 ML IV SCH (08:18)
[2023-05-13] MEDS: KETOROLAC 15 MG/ML 1 ML VIAL IVP SCH ×3 (08:58→17:35)
[2023-05-13] MEDS: PANTOPRAZOLE 40 MG/10 ML VIAL IV SCH (08:59)
[2023-05-13] MEDS: ALBUTEROL NEBULIZED 2.5 MG/3 ML INHALATION SCH ×4 (09:15→20:27)
--- NOTE | 2023-05-13 09:55 | FL ---
EXAMINATION TYPE: FL UGI DATE OF EXAM: 05/13/2023 CLINICAL HISTORY: Status post gastric sleeve Contrast: Omnipaque 350 50 mL.23-SEC FL TIME. 572.22-DAP The patient ingested contrast without difficulty or delay. Noted are postsurgical changes of gastric sleeve. There is no evidence for leak or obstruction. Contrast is noted within the duodenum. IMPRESSION: Post-surgical change of gastric sleeve without evidence for obstruction or leak at this point in time.
[2023-05-13] MEDS: SIMETHICONE 80 MG CHEWABLE PO SCH ×3 (09:58→17:38)
--- NOTE | 2023-05-13 10:53 | P.PN ---
Subjective Progress Note Date: 05/13/23 CHIEF COMPLAINT: Morbid obesity HISTORY OF PRESENT ILLNESS: Postop day #1 status post laparoscopic sleeve gastrectomy. Pain is controlled. She has been up and ambulating. She did complain of gas pains and some hiccuping. Denies any nausea or vomiting. Denies difficulty urinating. Afebrile. Upper GI shows no evidence of obstruction or leak. Labs are pending PHYSICAL EXAM: VITAL SIGNS: Reviewed. GENERAL: Well-developed in no acute distress. ABDOMEN: Soft. Nondistended. Nontender. Abdominal binder NEUROLOGIC: Alert and oriented. Cranial nerves II through XII grossly intact. ASSESSMENT: 1. Morbid obesity status post laparoscopic sleeve gastrectomy PLAN: -Start bariatric clear liquid diet -Continue IV fluid -Toradol added for pain -Mylicon gas chews changed to scheduled -Encouraged patient ambulate -Encouraged patient to use incentive spirometer -GI prophylaxis Protonix and DVT prophylaxis Lovenox Physician Manager Of Financial Planning note has been reviewed by physician. Signing provider agrees with the documented findings, assessment, and plan of care. Objective - Vital Signs Vital signs: Vital Signs Temp 97.8 F 05/13/23 07:39 Pulse 63 05/13/23 10:02 Resp 16 05/13/23 10:02 BP 133/78 05/13/23 10:02 Pulse Ox 99 05/13/23 07:39 FiO2 Intake & Output 05/12/23 05/13/23 05/13/23 18:59 06:59 18:59 Intake Total 1200 Output Total 25 Balance 1175 Weight 114.7 kg Intake: IV 1200 Output: Estimated Blood Loss 25 Other: # Voids 1 3
[2023-05-13 11:10] LABS: Basophils # (A) 0.02 X 10*3/uL (0.00-0.10); Basophils % (A) 0.2 %; Eosinophils # (A) 0.01 X 10*3/uL (0.04-0.35); Eosinophils % (A) 0.1 %; HCT 37.3 % (37.2-46.3); HGB 12.2 d/dL (12.0-15.0); Lymphocytes # (A) 1.23 X 10*3/uL (0.90-5.00); Lymphocytes % (A) 13.8 %; MCH 29.7 pg (27.0-32.0); MCHC 32.7 d/dL (32.0-37.0); MCV 90.8 FL (80.0-97.0); Mean Platelet Volume 10.1 FL (9.5-12.2); Monocytes % (A) 7.9 %; NRBC Per 100 WBC 0 X 10*3/uL (0.00-0.01); Neutrophils # (A) 6.93 X 10*3/uL (1.80-7.70); Neutrophils % (A) 77.9 %; Platelet Count 196 X 10*3/uL (140-440); RBC 4.11 X 10*6/uL (4.10-5.20); RDW 13.7 % (11.5-14.5)
[2023-05-13 11:15] LABS: Blood Urea Nitrogen 7.3 mg/dL (9.0-27.0); Calcium 8.7 mg/dL (8.7-10.3); Carbon Dioxide 25.3 mmol/L (21.6-31.8); Chloride 104 mmol/L (96-109); Magnesium 2.1 mg/dL (1.5-2.4); Potassium 4.8 mmol/L (3.5-5.5); Sodium 139 mmol/L (135-145)
--- NOTE | 2023-05-13 11:37 | P.PN ---
Subjective Progress Note Date: 05/13/23 Hospital course: Patient is a very pleasant 57-year-old female with class II obesity with BMI of 39.6 kg/m, asthma, elevated liver enzymes, and arthritis. She is currently admitted to the hospital status post elective sleeve gastrectomy completed on 05/12/23. We were consulted for medical management throughout patient's hospitalization. Physical exam: Patient seen and fully evaluated at bedside this morning. Patient reports having a rough night feeling very "gassy". Otherwise reports postoperative pain is controlled, denies any episodes of nausea or vomiting, and denies any other complaints at this time. Patient reports episodes of eructation but denies having any flatus or bowel movement since surgical procedure was completed. Vital signs reviewed and stable. General: Nontoxic, no distress and appears stated age. Derm: Skin warm and dry, normal coloration for ethnicity. Head: Atraumatic, normocephalic and symmetric. Eyes: EOMs intact, no lid lag, and anicteric sclera Mouth: no lip lesions, mucus membranes moist Cardiovascular: regular rate and rhythm with normal S1S2, no murmur, positive po sterior tibial pulses bilaterally, and cap refill < 2 seconds. Lungs: Respirations even, regular, and unlabored on room air. Lungs CTA bilaterally, no rhonchi, no rales, no wheezing, and no accessory muscle usage. Abdominal: soft, nontender to palpation, no guarding, no appreciable organomegaly Ext: ROM intact. No gross muscle atrophy, no edema, no contractures Neuro: Speech clear, face symmetrical and CN II-XII grossly intact with no noted focal neuro deficits Psych: Alert and oriented to person, place, time, and situation. Appropriate and pleasant affect. Assessment and Plan of Care: 57-year-old female status post elective sleeve gastrectomy for obesity with BMI 39.6 Intractable postop pain -Continue with acetaminophen 1000 mg every 6 hours scheduled IV and Toradol 15 mg every 6 hours scheduled with Dilaudid 0.5 mg as needed for breakthrough pain. Patient has not needed IV Dilaudid since yesterday evening at 10:35 PM. -Patient underwent upper GI fluoroscopy this morning and awaiting results this time. -Patient remains NPO and diet to be advanced by primary admitting general surgery team after receiving upper GI series results. TORSTEN -May resume nightly CPAP -Head of the bed elevated greater than 30, continue with O2 supplementation, spot check pulse oximetry Asthma Allergic Rhinitis - Symbicort 2 puffs twice daily, albuterol via nebulizer every 6 hours scheduled and as needed - Flonase 1 spray's nostril daily - Hold ana m Imaging: -No new imaging for review. Data Review: -Morning labs reviewed. CBC, BMP, and magnesium were unremarkable. Preoperative hemoglobin 14.8 and postoperative hemoglobin stable at 12.2. -Vital signs reviewed and stable with blood pressure 146/73, heart rate 50, respiratory rate 16, temp 98.0F, SpO2 of 94% on room air. Thank you for allowing us to participate in the care of this pleasant patient. Do not hesitate to contact us with questions. Someone can be reached from the [facility] hospitalist group all hours of the day at [phone] or via [employer] serve. Patient was seen independently by Nurse Pracitioner. This document was prepared using [employer] dictation software. Please allow for errors in fermenter wine, while rare they do occur. I reviewed the documentation as provided by the RENATA above, who is the original author of this note. I agree with the documented assessment and plan, with the following changes: none Objective - Vital Signs Vital signs: Vital Signs Temp 98.0 F 05/13/23 02:00 Pulse 50 L 05/13/23 02:00 Resp 16 05/13/23 02:00 BP 146/73 05/13/23 02:00 Pulse Ox 94 L 05/13/23 02:00 FiO2 Intake & Output 05/12/23 05/13/23 05/13/23 18:59 06:59 18:59 Intake Total 1200 Output Total 25 Balance 1175 Weight 114.7 kg Intake: IV 1200 Output: Estimated Blood Loss 25 Other: # Voids 1 3 - Labs CBC & Chem 7: 05/14/23 05:31 05/13/23 05:59
[2023-05-13 12:56] VITALS: BMI 39.6
[2023-05-14] MEDS: KETOROLAC 15 MG/ML 1 ML VIAL IVP SCH ×2 (00:26→09:30)
[2023-05-14] MEDS: SIMETHICONE 80 MG CHEWABLE PO SCH ×3 (00:27→12:13)
[2023-05-14] MEDS: 0.9% NACL WITH KCL 20 MEQ/L 1,000 ML IV SCH ×2 (04:10→05:10)
[2023-05-14] MEDS: LACTATED RINGERS 1,000 ML IV SCH (06:09)
[2023-05-14] MEDS ORDERED: bisacodyL 5 MG TABLET.DR PO PRN (08:00)
[2023-05-14 09:20] LABS: HCT 36.5 % (37.2-46.3); HGB 11.8 d/dL (12.0-15.0); MCH 29.1 pg (27.0-32.0); MCHC 32.3 d/dL (32.0-37.0); MCV 90.1 FL (80.0-97.0); Mean Platelet Volume 10.1 FL (9.5-12.2); NRBC Per 100 WBC 0 X 10*3/uL (0.00-0.01); Platelet Count 157 X 10*3/uL (140-440); RBC 4.05 X 10*6/uL (4.10-5.20); WBC 5.39 X 10*3/uL (4.50-10.00)
[2023-05-14] MEDS: ENOXAPARIN 40 MG/0.4 ML SYRINGE SQ SCH (09:28)
[2023-05-14] MEDS: PANTOPRAZOLE 40 MG/10 ML VIAL IV SCH (09:30)
[2023-05-14] MEDS: ALBUTEROL NEBULIZED 2.5 MG/3 ML INHALATION SCH ×2 (09:32→12:00)
--- NOTE | 2023-05-14 11:47 | P.DS ---
Providers Date of admission: 05/13/23 10:19 Expected date of discharge: 05/14/23 Attending physician: Alban Mcdaniel Consults: 05/12/23 10:19 Consult Physician Routine Consulting Provider: Mami Hood Consult Reason/Comments: Medical management Do you want consulting provider notified?: Yes Primary care physician: MOMO Wolf Hospital Course: Discharge diagnosis 1. Morbid obesity, arthritis and sleep apnea status post laparoscopic sleeve gastrectomy Hospital course This 57-year-old female with a known history of morbid obesity. She is status post laparoscopic sleeve gastrectomy. Upper GI shows no evidence of leak or obstruction. She is tolerating diet. She has been up and ambulating. She is having flatus. She's afebrile. Her pain is controlled. Incision sites are clean dry and intact. She is stable for discharge. Please refer to chart for any further details. Physician Readiness Paraprofessional note has been reviewed by physician. Signing provider agrees with the documented findings, assessment, and plan of care. Patient Condition at Discharge: Stable Plan - Discharge Summary Discharge Rx Participant: Yes New Discharge Prescriptions: New bisacodyL [Dulcolax] 5 mg PO DAILY PRN #10 tab PRN Reason: Constipation Omeprazole [PriLOSEC] 40 mg PO DAILY #30 cap Ondansetron Odt [Zofran Odt] 4 mg PO Q8HR PRN #9 tab PRN Reason: Nausea HYDROcodone/APAP 5-325MG [[place] 5-325] 1 tab PO Q6HR PRN 2 Days #5 tab PRN Reason: Pain Simethicone 40 mg/0.6 ml Drops [Mylicon Drops] 40 mg PO PCHS PRN #30 ml PRN Reason: Gas Continue Fluticasone Nasal [place] [Flonase Nasal [place]] 1 spray NASAL DAILY PRN PRN Reason: Allergy Symptoms Montelukast Sodium [Singulair] 10 mg PO HS Budesonide/Formoterol Fumarate [Symbicort 160-4.5 Mcg Inhaler] 2 puff INHALATION BID PRN PRN Reason: Allergy Symptoms Fexofenadine HCl [Trinity Allergy] 180 mg PO DAILY EPINEPHrine [Auvi-Q] 0.3 mg IM ONCE PRN PRN Reason: Anaphylaxis Albuterol Inhaler [Ventolin Hfa Inhaler] 1 - 2 puff INHALATION Q6H PRN PRN Reason: Wheezing Discontinued Cholecalciferol [Vitamin D3 (25 Mcg = 1000 Iu)] 4,000 unit PO MOTUWETHFR Discharge Medication List Fluticasone Nasal [place] [Flonase Nasal [place]] 1 spray NASAL DAILY PRN 10/17/15 [History] Budesonide/Formoterol Fumarate [Symbicort 160-4.5 Mcg Inhaler] 2 puff INHALATION BID PRN 04/07/20 [History] Montelukast Sodium [Singulair] 10 mg PO HS 04/07/20 [History] Albuterol Inhaler [Ventolin Hfa Inhaler] 1 - 2 puff INHALATION Q6H PRN 01/20/23 [History] EPINEPHrine [Auvi-Q] 0.3 mg IM ONCE PRN 01/20/23 [History] Fexofenadine HCl [Trinity Allergy] 180 mg PO DAILY 01/20/23 [History] HYDROcodone/APAP 5-325MG [[place] 5-325] 1 tab PO Q6HR PRN 2 Days #5 tab 05/14/23 [Rx] Omeprazole [PriLOSEC] 40 mg PO DAILY #30 cap 05/14/23 [Rx] Ondansetron Odt [Zofran Odt] 4 mg PO Q8HR PRN #9 tab 05/14/23 [Rx] Simethicone 40 mg/0.6 ml Drops [Mylicon Drops] 40 mg PO PCHS PRN #30 ml 05/14/23 [Rx] bisacodyL [Dulcolax] 5 mg PO DAILY PRN #10 tab 05/14/23 [Rx] [facility] up [facility](s[facility]Ref[place] [facility] [place]23 Alban Mcdaniel MD [Medical Doctor] - 1 Week Activity/Diet/Wound Care/Special Instructions: No driving while taking [place] No lifting over 10 pounds You may shower. No soaking or tub baths for 2 weeks Very light activity until you are reevaluated at your follow up appointment with your surgeon No straws or carbonated beverages Hold on taking vitamin D until seen by surgeon Discharge Disposition: HOME SELF-CARE
[2023-05-14 13:15] VITALS: BP 157/78; PULSE 57; RESP 15; TEMP 98.6
--- NOTE | 2023-05-14 14:12 | P.PN ---
Subjective Progress Note Date: 05/14/23 Hospital course: Patient is a very pleasant 57-year-old female with class II obesity with BMI of 39.6 kg/m, asthma, elevated liver enzymes, and arthritis. She is currently admitted to the hospital status post elective sleeve gastrectomy completed on 05/12/23. We were consulted for medical management throughout patient's hospitalization. Physical exam: Patient seen and fully evaluated at bedside this morning. Patient reports having a much better night last night. She reports she has been ambulating in the halls and is no longer having frequent eructations and now reports passing flatus. She has tolerated a clear liquid diet with no episodes of nausea or vomiting. She reports controlled postoperative pain and denies having any complaints at this time this morning. Vital signs reviewed and stable. General: Nontoxic, no distress and appears stated age. Derm: Skin warm and dry, normal coloration for ethnicity. Head: Atraumatic, normocephalic and symmetric. Eyes: EOMs intact, no lid lag, and anicteric sclera Mouth: no lip lesions, mucus membranes moist Cardiovascular: regular rate and rhythm with normal S1S2, no murmur, positive posterior tibial pulses bilaterally, and cap refill < 2 seconds. Lungs: Respirations even, regular, and unlabored on room air. Lungs CTA bilaterally, no rhonchi, no rales, no wheezing, and no accessory muscle usage. Abdominal: soft, nontender to palpation, no guarding, no appreciable organomegaly Ext: ROM intact. No gross muscle atrophy, no edema, no contractures Neuro: Speech clear, face symmetrical and CN II-XII grossly intact with no noted focal neuro deficits Psych: Alert and oriented to person, place, time, and situation. Appropriate and pleasant affect. Assessment and Plan of Care: 57-year-old female status post elective sleeve gastrectomy for obesity with BMI 39.6 Intractable postop pain, much better controlled Postoperative blood loss anemia, expected finding and stable. -Continue with Toradol 15 mg every 8 hours scheduled with Dilaudid 0.5 mg as needed for breakthrough pain. Patient has not needed IV Dilaudid since yesterday evening at 10:35 PM. -Patient underwent upper GI fluoroscopy yesterday morning and followed up on radiology report stating postsurgical change of gastric sleeve without evidence for obstruction or leak at this time.. -Patient tolerating clear liquid diet. -Followed up on postoperative labs. Hemoglobin stable at 11.8, no need for further testing or interventions at this time.. TORSTEN -Continue nightly CPAP -Head of the bed elevated greater than 30, continue with O2 supplementation if and when needed, spot check pulse oximetry Asthma Allergic Rhinitis -Continue Symbicort 2 puffs twice daily, albuterol via nebulizer every 6 hours scheduled and as needed - Flonase 1 spray each nostril daily - Hold ana m Imaging: -Patient underwent upper GI fluoroscopy yesterday morning and once radiology report was available, it was reviewed stating postsurgical change of gastric sleeve without evidence for obstruction or leak at this time... Data Review: -Morning labs reviewed. CBC showing stable postoperative hemoglobin of 11.8. Preoperative hemoglobin 14.8 and postoperative hemoglobin stable at 11.8. No signs of active bleeding, no need for intervention at this time, and no need for further testing.. -Vital signs reviewed and stable with blood pressure Thank you for allowing us to participate in the care of this pleasant patient. Do not hesitate to contact us with questions. Someone can be reached from the [facility] hospitalist group all hours of the day at [phone] or via NotesFirst. Patient was seen independently by Nurse Pracitioner. This document was prepared using [employer] dictation software. Please allow for errors in personal insurance advisor, while rare they do occur. Bjorn Acuña NP rendered care for this patient independently, reviewed the findings and plan as documented in the note above. I did not physically speak with or examine the patient on this date. Objective - Vital Signs Vital signs: Vital Signs Temp 98.5 F 05/14/23 02:00 Pulse 69 05/14/23 02:00 Resp 16 05/14/23 02:00 BP 159/81 05/14/23 02:00 Pulse Ox 98 05/14/23 02:00 FiO2 Intake & Output 05/13/23 05/14/23 05/14/23 18:59 06:59 18:59 Intake Total 1200 1700 Balance 1200 1700 Weight 114.7 kg Intake: Intake, IV Titration 1200 1200 Amount 0.9% NaCl with KCl 20 Meq 1200 1200 /l 1,000 ml @ 100 mls/hr IV .Q10H SHERLEY Rx#: [id number] Oral 500 Other: # Voids 3 2 - Labs CBC & Chem 7: 05/14/23 05:31 05/13/23 05:59 Labs: Abnormal Lab Results - Last 24 Hours (Table) 05/13/23 05/13/23 Range/Units 05:59 05:59 Eosinophils # 0.01 L (0.04-0.35) X 10*3/uL BUN 7.3 L (9.0-27.0) mg/dL
== END 2023-05-14 13:54 | disposition home or self-care (01) ==
LOC: OR 06:09 → 4SSUR 10:36 → OR 05-13 10:19 → 4SSUR 05-13 10:19
PROVIDERS: ADMIT Surgery; ATTEND Surgery
DX: E66.01 Morbid (severe) obesity due to excess calories (principal); K29.50 Unspecified chronic gastritis without bleeding; G47.33 Obstructive sleep apnea (adult) (pediatric); M72.2 Plantar fascial fibromatosis; J45.909 Unspecified asthma, uncomplicated; Z90.49 Acquired absence of other specified parts of digestive tract; Z87.891 Personal history of nicotine dependence; Z82.49 Family history of ischemic heart disease and other diseases of the circulatory system; Z81.8 Family history of other mental and behavioral disorders; Z83.49 Family history of other endocrine, nutritional and metabolic diseases; Z79.51 Long term (current) use of inhaled steroids; Z79.899 Other long term (current) drug therapy; Z68.41 Body mass index [BMI] 40.0-44.9, adult
CPT/HCPCS: 43775; S2900; 74240; 80051; 82310; 82565; 83735; 84100; 84520; 85025; 85027; 86850; 86900; 86901; 88307; 94640; 94760; 96365; 96366; 96372; 96375; 96376

== ENCOUNTER → 2023-05-16 | Outpatient (CLI) | payer BC ==
[2023-05-16 10:48] VITALS: BP 150/85; PULSE 64; RESP 13; TEMP 98.3; BMI 38.6
== END ==
LOC: BARWHC3 09:58
PROVIDERS: ATTEND Surgery
DX: E66.01 Morbid (severe) obesity due to excess calories (principal); Z68.38 Body mass index [BMI] 38.0-38.9, adult; Z98.84 Bariatric surgery status
CPT/HCPCS: 99211

== ENCOUNTER → 2023-05-20 | Outpatient (CLI) | payer BC ==
[2023-05-20 14:40] VITALS: BP 125/83; PULSE 75; RESP 16; TEMP 98; BMI 37.9
--- NOTE | 2023-05-20 17:52 | P.BASOAP ---
Subjective Progress Note Date: 05/20/23 Principal diagnosis: Morbid obesity Patient returns for recheck. Underwent a recent sleeve gastrectomy 1.5 weeks ago.she is doing well. She has lost 5 pounds. Adequate protein and liquid intake. No nausea or vomiting. No GERD. No pain. Objective - Vital Signs Vital signs: Vital Signs Temp 98 F 05/20/23 14:38 Pulse 75 05/20/23 14:38 Resp 16 05/20/23 14:38 BP 125/83 05/20/23 14:38 Pulse Ox FiO2 Intake & Output 05/19/23 05/20/23 05/20/23 18:59 06:59 18:59 Weight 109.769 kg - Exam Abdomen: Soft, nontender, nondistended Assessment/Plan (1) Morbid obesity Narrative/Plan: 57-year-old female doing well after recent sleeve gastrectomy. Continue liquid diet. Continue light lifting. Follow-up 2-3 weeks. Check one month labs at that time. Plan: Date: 05/20/23 Initial Weight: 127.006 kg Initial BMI: 43.8 Current Weight: 109.769 kg Current BMI: 37.9 Type of Surgery: Vertical Sleeve Gastrectomy Total Volume in Band: Previous Volume: Volume Removed: Volume Added: Band Size:
== END ==
LOC: BARWHC3 14:27
PROVIDERS: ATTEND Surgery
DX: E66.01 Morbid (severe) obesity due to excess calories (principal); Z71.3 Dietary counseling and surveillance; Z98.84 Bariatric surgery status; Z48.815 Encounter for surgical aftercare following surgery on the digestive system; Z68.37 Body mass index [BMI] 37.0-37.9, adult; Z91.018 Allergy to other foods; Z87.891 Personal history of nicotine dependence
CPT/HCPCS: 97803; 99211

== ENCOUNTER → 2023-06-10 | Outpatient (CLI) | payer BC ==
[2023-06-10 15:06] VITALS: BP 115/74; PULSE 54; RESP 16; TEMP 98.1; BMI 36.5
--- NOTE | 2023-06-10 15:09 | P.BASOAP ---
Subjective Progress Note Date: 06/10/23 Principal diagnosis: Morbid obesity Patient returns for recheck. Doing well. Sleeve gastrectomy was done 1 month ago. She has lost 9 pounds since last visit. Minimal heartburn symptoms. No pain. Adequate protein intake. Liquid intake slightly lower than recommended because of returning to work. She is getting about 45-50 ounces per day. No nausea or vomiting. No pain. Objective - Vital Signs Vital signs: Vital Signs Temp 98.1 F 06/10/23 14:59 Pulse 54 L 06/10/23 14:59 Resp 16 06/10/23 14:59 BP 115/74 06/10/23 14:59 Pulse Ox FiO2 Intake & Output 06/09/23 06/10/23 06/10/23 18:59 06:59 18:59 Weight 105.687 kg - Exam Abdomen: Soft, nondistended, nontender, incisions clean and dry Assessment/Plan (1) Morbid obesity Narrative/Plan: Patient doing well at this time. Continue dietary and exercise regimen. Check one month labs. Patient will be seen by dietary today. Recheck 4-6 weeks. Plan: Date: 06/10/23 Initial Weight: 127.006 kg Initial BMI: 43.8 Current Weight: 105.687 kg Current BMI: 36.5 Type of Surgery: Vertical Sleeve Gastrectomy Total Volume in Band: Previous Volume: Volume Removed: Volume Added: Band Size:
== END ==
LOC: BARWHC3 14:31
PROVIDERS: ATTEND Surgery
DX: E66.01 Morbid (severe) obesity due to excess calories (principal); K90.89 Other intestinal malabsorption; E55.9 Vitamin D deficiency, unspecified; Z68.36 Body mass index [BMI] 36.0-36.9, adult; Z87.891 Personal history of nicotine dependence; Z91.018 Allergy to other foods; Z98.84 Bariatric surgery status; Z71.3 Dietary counseling and surveillance
CPT/HCPCS: 97803; 99211

== ENCOUNTER → 2023-06-12 | Outpatient (CLI) | payer BC ==
[2023-06-12 14:37] LABS: HCT 40.4 % (37.2-46.3); HGB 13.1 d/dL (12.0-15.0); MCH 29.4 pg (27.0-32.0); MCHC 32.4 d/dL (32.0-37.0); MCV 90.8 FL (80.0-97.0); Mean Platelet Volume 11.2 FL (9.5-12.2); NRBC Per 100 WBC 0 X 10*3/uL (0.00-0.01); Platelet Count 141 X 10*3/uL (140-440); RBC 4.45 X 10*6/uL (4.10-5.20); RDW 14.2 % (11.5-14.5); WBC 2.87 X 10*3/uL (4.50-10.00)
[2023-06-12 15:44] LABS: ALT 24 U/L (8-44); AST 28 U/L (13-35); Albumin 4.2 d/dL (3.8-4.9); Alkaline Phosphatase 65 U/L (41-126); BUN/Creat Ratio 10.88 Ratio (12.00-20.00); Blood Urea Nitrogen 8.7 mg/dL (9.0-27.0); Calcium 9.2 mg/dL (8.7-10.3); Carbon Dioxide 25.5 mmol/L (21.6-31.8); Chloride 104 mmol/L (96-109); Glucose 91 mg/dL (70-110); Iron 64 UG/DL (50-170); Potassium 4.1 mmol/L (3.5-5.5); Sodium 142 mmol/L (135-145); Total Bilirubin 1.3 mg/dL (0.3-1.2); Total Protein 6.2 d/dL (6.2-8.2)
== END | disposition home or self-care (01) ==
LOC: LABWHC1 07:00
PROVIDERS: ATTEND Surgery
DX: E66.01 Morbid (severe) obesity due to excess calories (principal); E55.9 Vitamin D deficiency, unspecified; K90.89 Other intestinal malabsorption
CPT/HCPCS: 36415; 80053; 82306; 82607; 82746; 83540; 84425; 85027

== ENCOUNTER → 2023-08-26 | Outpatient (CLI) | payer BC ==
[2023-08-26 13:10] VITALS: BP 129/67; PULSE 54; RESP 16; TEMP 97.9; BMI 32.8
--- NOTE | 2023-08-26 14:09 | P.GSHP ---
History of Present Illness H&P Date: 08/26/23 Chief Complaint: Morbid obesity The patient returns for recheck. Sleeve performed in April. She is due for three-month lab work. Drinking about 40-50 ounces of liquids per day. No GERD, no vomiting. Having some dental work later this month. Past Medical History Past Medical History: Asthma, Musculoskeletal Disorder, Osteoarthritis (OA), Sleep Apnea/CPAP/BIPAP Additional Past Medical History / Comment(s): severe SINUS/ALLERGIES, hx. elevated liver enzymes doesnt tolerate tylenol. frozen right shoulder, past hx. of left frozen shoulder, arthritis in hands. uses cpap. recent fractured lt arm and hand sprain in a brace. preparing for bariatric surgery with scopes History of Any Multi-Drug Resistant Organisms: None Reported Past Surgical History: Section, Cholecystectomy Additional Past Surgical History / Comment(s): D [employer] C. [employer] LAPAROSCOPY, wisdom teeth, manipulation of shoulder. Past Anesthesia/Blood Transfusion Reactions: No Reported Reaction Past Psychological History: No Psychological Hx Reported Smoking Status: Former smoker Past Alcohol Use History: Occasional Additional Past Alcohol Use History / Comment(s): SMOKED, QUIT 1999 FOR 15 YRS. Past Drug Use History: None Reported - Past Family History Mother Family Medical History: Hypertension, Osteoarthritis (OA), Thyroid Disorder Additional Family Medical History / Comment(s): depresstion Father Family Medical History: Coronary Artery Disease (CAD), CVA/TIA Additional Family Medical History / Comment(s): by pass surgery Medications and Allergies Home Medications Medication Instructions Recorded Confirmed Type Fluticasone Nasal [place] [Flonase 1 spray NASAL DAILY PRN 10/17/15 06/10/23 History Nasal [place]] Budesonide/Formoterol Fumarate 2 puff INHALATION BID PRN 04/07/20 06/10/23 History [Symbicort 160-4.5 Mcg Inhaler] Montelukast Sodium [Singulair] 10 mg PO HS 04/07/20 06/10/23 History Albuterol Inhaler [Ventolin Hfa 1 - 2 puff INHALATION Q6H PRN 01/20/23 06/10/23 History Inhaler] EPINEPHrine [Auvi-Q] 0.3 mg IM ONCE PRN 01/20/23 06/10/23 History Omeprazole [PriLOSEC] 40 mg PO DAILY #30 cap 05/14/23 06/10/23 Rx Ondansetron Odt [Zofran Odt] 4 mg PO Q8HR PRN #9 tab 05/14/23 06/10/23 Rx Simethicone 40 mg/0.6 ml Drops 40 mg PO PCHS PRN #30 ml 05/14/23 06/10/23 Rx [Mylicon Drops] bisacodyL [Dulcolax] 5 mg PO DAILY PRN #10 tab 05/14/23 06/10/23 Rx Cetirizine HCl [Zyrtec] 10 mg PO DAILY 06/10/23 06/10/23 History FLUoxetine HCL [PROzac] 10 mg PO DAILY 06/10/23 06/10/23 History Allergies Allergy/AdvReac Type Severity Reaction Status Date / Time cherries Allergy Severe Anaphylaxis Uncoded 05/12/23 06:45 Surgical - Exam Vital Signs Temp Pulse Resp BP 97.9 F 54 L 16 129/67 08/26/23 13:07 08/26/23 13:07 08/26/23 13:07 08/26/23 13:07 Abdomen: Soft, nontender, nondistended Assessment and Plan Plan: Patient doing well at this time. Continue dietary and excised regimen. Check three-month labs. Follow-up 6 weeks.
[2023-08-26 18:58] LABS: HCT 41.2 % (37.2-46.3); HGB 13.3 d/dL (12.0-15.0); MCH 29.8 pg (27.0-32.0); MCHC 32.3 d/dL (32.0-37.0); MCV 92.2 FL (80.0-97.0); Mean Platelet Volume 9.4 FL (9.5-12.2); NRBC Per 100 WBC 0 X 10*3/uL (0.00-0.01); Platelet Count 197 X 10*3/uL (140-440); RBC 4.47 X 10*6/uL (4.10-5.20); RDW 13.5 % (11.5-14.5)
[2023-08-27 01:14] LABS: ALT 17 U/L (8-44); AST 21 U/L (13-35); Albumin 4.4 d/dL (3.8-4.9); Albumin/Globulin Ratio 1.83 Ratio (1.60-3.17); Alkaline Phosphatase 79 U/L (41-126); BUN/Creat Ratio 12.67 Ratio (12.00-20.00); Blood Urea Nitrogen 11.4 mg/dL (9.0-27.0); Calcium 9.2 mg/dL (8.7-10.3); Carbon Dioxide 26.3 mmol/L (21.6-31.8); Chloride 103 mmol/L (96-109); Globulin 2.4 d/dL (1.6-3.3); Glucose 79 mg/dL (70-110); Iron 75 UG/DL (50-170); Potassium 4.2 mmol/L (3.5-5.5); Sodium 141 mmol/L (135-145); Total Bilirubin 1.4 mg/dL (0.3-1.2); Total Protein 6.8 d/dL (6.2-8.2)
== END ==
LOC: BARWHC3 12:34
PROVIDERS: ATTEND Surgery
DX: E66.01 Morbid (severe) obesity due to excess calories (principal); G47.30 Sleep apnea, unspecified; K90.89 Other intestinal malabsorption; E55.9 Vitamin D deficiency, unspecified; J45.909 Unspecified asthma, uncomplicated; M19.90 Unspecified osteoarthritis, unspecified site; Z87.891 Personal history of nicotine dependence; Z79.51 Long term (current) use of inhaled steroids; Z87.39 Personal history of other diseases of the musculoskeletal system and connective tissue; Z91.018 Allergy to other foods; Z71.3 Dietary counseling and surveillance; Z68.32 Body mass index [BMI] 32.0-32.9, adult
CPT/HCPCS: 80053; 82306; 82607; 82746; 83540; 84425; 85027; 97803; 99211

== ENCOUNTER → 2023-11-04 | Outpatient (CLI) | payer BC ==
--- NOTE | 2023-11-04 13:46 | P.BASOAP ---
Subjective Progress Note Date: 11/04/23 Principal diagnosis: morbid obesity Patient returns for recheck. Last seen in August. Doing well since that time. She had her dental work. Still taking antiacids daily. No heartburn. 4 pound weight loss. No pain. No vomiting. Objective - Vital Signs Vital signs: Vital Signs Temp 98.1 F 11/04/23 13:26 Pulse 59 L 11/04/23 13:26 Resp 16 11/04/23 13:26 BP 146/72 11/04/23 13:26 Pulse Ox FiO2 Intake & Output 11/03/23 11/04/23 11/04/23 18:59 06:59 18:59 Weight 93.44 kg - Exam Abdomen: Soft, nontender, nondistended Assessment/Plan (1) Morbid obesity Narrative/Plan: Patient doing well at this time. Continue dietary and exercise regimen. Switch to every other day antiacids. Follow-up in 6-8 weeks. We'll check 6 month labs at that time. Plan: Date: 11/04/23 Initial Weight: 127.006 kg Initial BMI: 43.8 Current Weight: 93.44 kg Current BMI: 32.2 Type of Surgery: Vertical Sleeve Gastrectomy Total Volume in Band: Previous Volume: Volume Removed: Volume Added: Band Size:
[2023-11-04 13:48] VITALS: BP 146/72; PULSE 59; RESP 16; TEMP 98.1; BMI 32.2
== END ==
LOC: BARWHC3 13:20
PROVIDERS: ATTEND Surgery
DX: E66.01 Morbid (severe) obesity due to excess calories (principal); Z68.41 Body mass index [BMI] 40.0-44.9, adult; Z71.3 Dietary counseling and surveillance
CPT/HCPCS: 97803; 99211

== ENCOUNTER → 2024-01-07 | Outpatient (CLI) | payer BC ==
[2024-01-07 16:55] LABS: HCT 41.6 % (37.2-46.3); HGB 13.9 g/dL (12.0-15.0); MCH 30.3 pg (27.0-32.0); MCHC 33.4 g/dL (32.0-37.0); MCV 90.8 FL (80.0-97.0); Mean Platelet Volume 9.4 FL (9.5-12.2); NRBC Per 100 WBC 0 X 10*3/uL (0.00-0.01); Platelet Count 204 X 10*3/uL (140-440); RBC 4.58 X 10*6/uL (4.10-5.20); RDW 12.6 % (11.5-14.5); WBC 6.53 X 10*3/uL (4.50-10.00)
[2024-01-07 18:00] LABS: ALT 21 U/L (8-44); AST 23 U/L (13-35); Albumin 4.3 g/dL (3.8-4.9); Albumin/Globulin Ratio 1.87 Ratio (1.60-3.17); Alkaline Phosphatase 70 U/L (41-126); BUN/Creat Ratio 15.22 Ratio (12.00-20.00); Blood Urea Nitrogen 13.7 mg/dL (9.0-27.0); Calcium 9.5 mg/dL (8.7-10.3); Carbon Dioxide 24.8 mmol/L (21.6-31.8); Chloride 106 mmol/L (96-109); Globulin 2.3 g/dL (1.6-3.3); Glucose 99 mg/dL (70-110); Iron 69 UG/DL (50-170); Potassium 4.1 mmol/L (3.5-5.5); Sodium 143 mmol/L (135-145); Total Protein 6.6 g/dL (6.2-8.2)
== END | disposition home or self-care (01) ==
LOC: LABWHC1 12:36
PROVIDERS: ATTEND Surgery
DX: E55.9 Vitamin D deficiency, unspecified (principal); E66.01 Morbid (severe) obesity due to excess calories; K90.89 Other intestinal malabsorption
CPT/HCPCS: 36415; 80053; 82306; 82607; 82746; 83540; 84425; 85027

== ENCOUNTER → 2024-01-13 | Outpatient (CLI) | payer BC ==
[2024-01-13 14:17] VITALS: BP 112/72; PULSE 70; RESP 16; TEMP 97.9; BMI 31.9
--- NOTE | 2024-01-13 16:53 | P.BASOAP ---
Subjective Progress Note Date: 01/13/24 Principal diagnosis: Morbid obesity Patient returns for recheck. Last seen 11/04. Underwent sleeve gastrectomy last April. She has lost 2 pounds. She had her 6-month labs which looked good. Patient taking her antiacids every other day and doing well with that. Her hair loss has decreased. Objective - Vital Signs Vital signs: Vital Signs Temp 97.9 F 01/13/24 14:02 Pulse 70 01/13/24 14:02 Resp 16 01/13/24 14:02 BP 112/72 01/13/24 14:02 Pulse Ox FiO2 Intake & Output 01/12/24 01/13/24 01/13/24 18:59 06:59 18:59 Weight 92.533 kg - Exam Abdomen: Soft, nontender, nondistended Assessment/Plan (1) Morbid obesity Narrative/Plan: Patient doing well at this time. Continue dietary and exercise regimen. Wean off antiacids. Plan: Date: 01/13/24 Initial Weight: 127.006 kg Initial BMI: 43.8 Current Weight: 92.533 kg Current BMI: 31.9 Type of Surgery: Vertical Sleeve Gastrectomy Total Volume in Band: Previous Volume: Volume Removed: Volume Added: Band Size:
== END ==
LOC: BARWHC3 13:46
PROVIDERS: ATTEND Surgery
DX: E66.01 Morbid (severe) obesity due to excess calories (principal); Z71.3 Dietary counseling and surveillance; Z98.84 Bariatric surgery status; Z91.018 Allergy to other foods; Z87.891 Personal history of nicotine dependence; Z68.32 Body mass index [BMI] 32.0-32.9, adult
CPT/HCPCS: 99211

== ENCOUNTER → 2024-03-02 | Outpatient (CLI) | payer BC ==
--- NOTE | 2024-03-03 18:59 | MM ---
Reason for Exam: Screening (asymptomatic). Last screening mammogram was performed 12 month(s) ago. Patient History: Menarche at age 12. First Full-Term at age 35. Late child-bearing (after 30). Postmenopausal. Patient has history of breast feeding. Currently using Estrogen, starting at age 54. 2000, Benign Core Biopsy on the right side. Risk Values: Malaika 5 year model risk: 2.1%. NCI Lifetime model risk: 10.7%. Prior Study Comparison: 08/24/2021 Left Diagnostic Mammogram, [facility]. 02/22/2022 Bilateral Diagnostic Mammogram, [facility]. 02/24/2023 Bilateral MG 3D screening mammo w/cad, [facility]. Tissue Density: The breasts are heterogeneously dense, which may obscure small masses. Findings: Analyzed By CAD. Asymmetrically greater density within the left breast is unchanged. 2 microvascular clips right breast from prior biopsies. Nodular subareolar focal asymmetry on the left is unchanged. There is no suspicious group of microcalcifications or new suspicious mass in either breast. Overall Assessment: Benign, BI-RAD 2 Management: Screening Mammogram of both breasts in 1 year. . Patient should continue monthly self-breast exams. A clinical breast exam by your physician is recommended on an annual basis. This exam should not preclude additional follow-up of suspicious palpable abnormalities. Note on Malaika scores and lifetime risk: 1. A Malaika score greater than 3% is considered moderate risk. If this is the case, consider specialist referral to assess eligibility for a risk reducing agent. 2. If overall lifetime risk for the development of breast cancer is 20% or higher, the patient may qualify for future screening with alternating mammogram and breast MRI. Electronically signed and approved by: Michelle Romero M.D. Radiologist
== END | disposition home or self-care (01) ==
LOC: RADMAMWWP 12:41
PROVIDERS: ATTEND Family Medicine
DX: Z12.31 Encounter for screening mammogram for malignant neoplasm of breast (principal); Z78.0 Asymptomatic menopausal state
CPT/HCPCS: 77063; 77067

== ENCOUNTER → 2024-03-02 | Outpatient (CLI) | payer BC ==
[2024-03-02 14:00] VITALS: BP 105/71; PULSE 60; TEMP 98.2; BMI 31.6
--- NOTE | 2024-03-02 16:20 | P.BASOAP ---
Subjective Progress Note Date: 03/02/24 Principal diagnosis: Morbid obesity Patient returns for recheck. Has lost 2 pounds since her last visit. Has been making some bad food choices recently. Objective - Vital Signs Vital signs: Vital Signs Temp 98.2 F 03/02/24 13:41 Pulse 60 03/02/24 13:41 Resp BP 105/71 03/02/24 13:41 Pulse Ox FiO2 Intake & Output 03/01/24 03/02/24 03/02/24 18:59 06:59 18:59 Weight 91.626 kg - Exam Abdomen: Soft, nontender, nondistended Assessment/Plan (1) Morbid obesity Narrative/Plan: Patient doing well after previous sleeve gastrectomy. Start every other day antiacids. Monitor food intake. Follow-up in April. Check 1 year labs at that time. Plan: Date: 03/02/24 Initial Weight: 127.006 kg Initial BMI: 43.8 Current Weight: 91.626 kg Current BMI: 31.6 Type of Surgery: Total Volume in Band: Previous Volume: Volume Removed: Volume Added: Band Size:
== END ==
LOC: BARWHC3 13:13
PROVIDERS: ATTEND Surgery
DX: E66.01 Morbid (severe) obesity due to excess calories (principal); Z90.3 Acquired absence of stomach [part of]; Z68.41 Body mass index [BMI] 40.0-44.9, adult; Z91.018 Allergy to other foods; Z87.891 Personal history of nicotine dependence
CPT/HCPCS: 99211

== ENCOUNTER → 2024-05-25 | Outpatient (CLI) | payer BC | LOC: BARWHC3 13:30 | PROVIDERS: ATTEND Surgery | DX: E66.01 Morbid (severe) obesity due to excess calories (principal); Z71.3 Dietary counseling and surveillance; Z91.018 Allergy to other foods; Z87.891 Personal history of nicotine dependence | CPT/HCPCS: 99211 ==

== ENCOUNTER → 2024-09-14 | Outpatient (CLI) | payer BC ==
[2024-09-14 11:03] VITALS: BP 108/79; PULSE 75; RESP 16; TEMP 97.8; BMI 32.5
--- NOTE | 2024-09-14 11:32 | P.BASOAP ---
Subjective Progress Note Date: 09/14/24 Principal diagnosis: Morbid obesity 4-year-old female returns for recheck. Last seen in May. Since her last visit her weight did go up 5 pounds. Feels well. She had reflux on 1 occasion after taking some cold medication. Resolved with Tums. Does not take PPIs. Some tightness/fullness feeling with meats still. Tolerating ground meat well. No pain. Recent labs look good. Objective - Vital Signs Vital signs: Vital Signs Temp 97.8 F 09/14/24 11:00 Pulse 75 09/14/24 11:00 Resp 16 09/14/24 11:00 BP 108/79 09/14/24 11:00 Pulse Ox FiO2 Intake & Output 09/13/24 09/14/24 09/14/24 18:59 06:59 18:59 Weight 94.347 kg - Exam Abdomen: Soft, nontender, nondistended Assessment/Plan (1) Morbid obesity with BMI of 40.0-44.9, adult Narrative/Plan: Patient doing well at this time. Continue dietary and exercise regimen. Plan follow-up 3 months. Plan: Date: 09/14/24 Initial Weight: 127.006 kg Initial BMI: 43.8 Current Weight: 94.347 kg Current BMI: 32.5 Type of Surgery: Vertical Sleeve Gastrectomy Total Volume in Band: Previous Volume: Volume Removed: Volume Added: Band Size:
== END ==
LOC: BARWHC3 10:48
PROVIDERS: ATTEND Surgery
DX: E66.01 Morbid (severe) obesity due to excess calories (principal); Z68.41 Body mass index [BMI] 40.0-44.9, adult; Z71.3 Dietary counseling and surveillance; Z91.018 Allergy to other foods; Z87.891 Personal history of nicotine dependence
CPT/HCPCS: 99211

== ENCOUNTER → 2024-12-14 | Outpatient (CLI) | payer BC ==
[2024-12-14 15:20] VITALS: BP 138/80; PULSE 104; RESP 16; TEMP 97.8; BMI 32.8
--- NOTE | 2024-12-14 16:04 | P.BASOAP ---
Subjective Progress Note Date: 12/14/24 Principal diagnosis: Morbid obesity Patient returns for recheck. She was last seen in August. Patient has gained 2 pound since her last visit. Says she has had a lot of stress lately. Her mother in September. Not exercising currently. She has actually lost some weight she says since the holidays. Only has mild reflux occasionally. Takes occasional as needed PPI. No vomiting. Objective - Vital Signs Vital signs: Vital Signs Temp 97.8 F 12/14/24 15:18 Pulse 104 H 12/14/24 15:18 Resp 16 12/14/24 15:18 BP 138/80 12/14/24 15:18 Pulse Ox FiO2 Intake & Output 12/13/24 12/14/24 12/14/24 18:59 06:59 18:59 Weight 95.254 kg - Exam Abdomen: Soft, nontender, nondistended Assessment/Plan (1) Morbid obesity Narrative/Plan: Patient doing well after previously gastrectomy. Continue as needed antiacids. Increase exercise and continue working on her diet. Patient states this is the time a year where she typically loses the most amount of weight. Follow-up in April. Will check 2-year labs just prior to that visit. Plan: Date: 12/14/24 Initial Weight: 127.006 kg Initial BMI: 43.8 Current Weight: 95.254 kg Current BMI: 32.8 Type of Surgery: Vertical Sleeve Gastrectomy Total Volume in Band: Previous Volume: Volume Removed: Volume Added: Band Size:
== END ==
LOC: BARWHC3 14:52
PROVIDERS: ATTEND Surgery
DX: E66.01 Morbid (severe) obesity due to excess calories (principal); Z68.32 Body mass index [BMI] 32.0-32.9, adult; Z91.018 Allergy to other foods; Z87.891 Personal history of nicotine dependence
CPT/HCPCS: 99211

== ENCOUNTER → 2025-04-15 | Outpatient (CLI) | payer BC ==
--- NOTE | 2025-04-15 11:34 | MM ---
Reason for Exam: Screening (asymptomatic). Last mammogram was performed 1 year(s) and 1 month(s) ago. Patient History: Menarche at age 12. First Full-Term at age 35. Late child-bearing (after 30). Postmenopausal. Patient has history of breast feeding. Currently using Estrogen, starting at age 54. 2000, Benign Core Biopsy on the right side. Risk Values: Amlaika 5 year model risk: 2.2%. NCI Lifetime model risk: 10.4%. Prior Study Comparison: 02/22/2022 Bilateral Diagnostic Mammogram, [facility]. 02/24/2023 Bilateral MG 3D screening mammo w/cad, [facility]. 03/02/2024 Bilateral MG 3D screening mammo w/cad, [facility]. Tissue Density: The breasts are heterogeneously dense, which may obscure small masses. Findings: Analyzed By CAD. Right breast biopsy clips. Right breast: There is no suspicious group of microcalcifications or new suspicious mass. Left breast: There is no suspicious group of microcalcifications or new suspicious mass. Overall Assessment: Benign, BI-RAD 2 Management: Screening Mammogram of both breasts in [address] [facility] will attempt to contact patient to return for supplemental views and ultrasound if indicated. Patient should continue monthly self-breast exams. A clinical breast exam by your physician is recommended on an annual basis. This exam should not preclude additional follow-up of suspicious palpable abnormalities. Note on Malaika scores and lifetime risk: 1. A Malaika score greater than 3% is considered moderate risk. If this is the case, consider specialist referral to assess eligibility for a risk reducing agent. 2. If overall lifetime risk for the development of breast cancer is 20% or higher, the patient may qualify for future screening with alternating mammogram and breast MRI. [facility], , 04/15/2025 11:05 AM. Electronically signed and approved by: Ramiro Griggs DO
[2025-04-15 15:18] LABS: HCT 40.7 % (37.2-46.3); HGB 13.2 g/dL (12.0-15.0); MCH 29.7 pg (27.0-32.0); MCHC 32.4 g/dL (32.0-37.0); MCV 91.7 FL (80.0-97.0); Mean Platelet Volume 9.5 FL (9.5-12.2); NRBC Per 100 WBC 0 X 10*3/uL (0.00-0.01); Platelet Count 231 X 10*3/uL (140-440); RBC 4.44 X 10*6/uL (4.10-5.20); RDW 12.6 % (11.5-14.5); WBC 4.42 X 10*3/uL (4.50-10.00)
[2025-04-15 16:08] LABS: BUN/Creat Ratio 17.75 Ratio (12.00-20.00); Blood Urea Nitrogen 14.2 mg/dL (9.0-27.0); Carbon Dioxide 26.7 mmol/L (21.6-31.8); Chloride 108 mmol/L (96-109); Glucose 80 mg/dL (70-110); Iron 105 UG/DL (50-170); Potassium 4.3 mmol/L (3.5-5.5); Sodium 145 mmol/L (135-145)
[2025-04-15 16:09] LABS: ALT 23 U/L (8-44); AST 27 U/L (13-35); Albumin 4.1 g/dL (3.8-4.9); Albumin/Globulin Ratio 1.71 Ratio (1.60-3.17); Alkaline Phosphatase 63 U/L (41-126); Calcium 9.1 mg/dL (8.7-10.3); Globulin 2.4 g/dL (1.6-3.3); Total Bilirubin 1.3 mg/dL (0.3-1.2); Total Protein 6.5 g/dL (6.2-8.2)
--- NOTE | 2025-04-17 07:24 | BD ---
EXAMINATION TYPE: Axial Bone Density DATE OF EXAM: 04/15/2025 CLINICAL HISTORY: 59 years old Female. ICD-10 CODE: Z78.0 PRE MENAPAUSAL , Additional History: Height: 65.25 Weight: 212 FRAX RISK QUESTIONS: History of Fracture in Adulthood: yes Secondary Osteoporosis: RISK FACTORS HISTORY OF: History of Wrist Fracture: yes, bilateral When: 2022 MEDICATIONS: EXAM MEASUREMENTS: Bone mineral densitometry was performed using the [employer]. Bone mineral density as measured about the Lumbar spine is: ----- L1-L4(G/cm2): 1.222 T Score Values are as follows: ----- L1: -0.9 ----- L2: 0.7 ----- L3: 0.9 ----- L4: 0.5 ----- L1-L4: 0.3 Z Score Values are as follows: ----- L1: -0.7 ----- L2: 1.0 ----- L3: 1.1 ----- L4: 0.7 ----- L1-L4: 0.6 First dexa at [facility] Bone mineral density about the R hip (g/cm2): 1.020 Bone mineral density about the L hip (g/cm2): 1.073 T Score values are as follows: -----R Neck: -0.8 -----L Neck: -0.5 -----R Total: 0.1 -----L Total: 0.5 Z Score values are as follows: -----R Neck: -0.2 -----L Neck: 0.1 -----R Total: 0.3 -----L Total: 0.8 First dexa at [facility] FRAX%s: The graph provided illustrates a 11.3% chance for a major osteoporotic fx and a 0.5% chance f or the hips probability for fx in 10 years time. IMPRESSION: Normal (Values between +1 and -1 indicate normal bone mass). Consider repeating this study in 5 year s or sooner if there is some new clinical indication. NOTE: T-SCORE=SD OF THE YOUNG ADULT MEAN. [facility], , 04/17/2025 7:21 AM
== END | disposition home or self-care (01) ==
LOC: RADMAMWWP 09:40
PROVIDERS: ATTEND Family Medicine
DX: Z12.31 Encounter for screening mammogram for malignant neoplasm of breast (principal); R92.333 Mammographic heterogeneous density, bilateral breasts; K90.9 Intestinal malabsorption, unspecified; E55.9 Vitamin D deficiency, unspecified; Z78.0 Asymptomatic menopausal state
CPT/HCPCS: 77063; 77067; 77080; 80053; 82306; 82607; 82746; 83540; 84425; 85027

== ENCOUNTER → 2025-04-26 | Outpatient (CLI) | payer BC ==
[2025-04-26 15:14] VITALS: BP 121/82; PULSE 73; RESP 16; TEMP 97.5; BMI 33.5
--- NOTE | 2025-04-26 15:29 | P.BASOAP ---
Subjective Progress Note Date: 04/26/25 Principal diagnosis: Morbid obesity Patient here for routine recheck. Last seen in November. Doing well. Finished work for the summer. Has gained 4 pounds since her last visit. Had her annual labs checked last week. Only abnormal lab seen is a vitamin D of 27. Patient states she has chronically low vitamin D and takes a multivitamin with vitamin D in it. She has an appointment coming up to see plastic surgery to discuss abdominoplasty. Rare episodes of reflux well-controlled with Tums. No nausea or vomiting. Patient states she plans to start exercising more. Objective - Vital Signs Vital signs: Vital Signs Temp 97.5 F L 04/26/25 15:07 Pulse 73 04/26/25 15:07 Resp 16 04/26/25 15:07 BP 121/82 04/26/25 15:07 Pulse Ox FiO2 Intake & Output 04/25/25 04/26/25 04/26/25 18:59 06:59 18:59 Weight 97.069 kg - Exam Abdomen: Soft, nontender, nondistended Assessment/Plan (1) Morbid obesity Narrative/Plan: 59-year-old female doing relatively well after prior sleeve gastrectomy. Patient has gained a bit more weight from her last visit. Activity has been a little bit less. She plans to increase her exercise amount. Await upcoming plastic surgery evaluation in April. Plan recheck with myself in 6 months. Plan: Date: 04/26/25 Initial Weight: 127.006 kg Initial BMI: 43.8 Current Weight: 97.069 kg Current BMI: 33.5 Type of Surgery: Total Volume in Band: Previous Volume: Volume Removed: Volume Added: Band Size:
== END ==
LOC: BARWHC3 15:01
PROVIDERS: ATTEND Surgery
DX: E66.01 Morbid (severe) obesity due to excess calories (principal); Z68.33 Body mass index [BMI] 33.0-33.9, adult; Z87.891 Personal history of nicotine dependence; Z91.018 Allergy to other foods
CPT/HCPCS: 99211